=== PATIENT | male | born 1940 | race Caucasian/White ===

== ENCOUNTER 2019-11-05 13:10 | Emergency (ER) | payer SELFPAY ==
--- NOTE | ~2019-11-05 | CT_ITS ---
EXAMINATION: CT brain wo con INDICATION: Altered mental status COMPARISON: None TECHNIQUE: Standard unenhanced head CT. The dose-length product (DLP) was 681.00 mGy-cm. The mA was a djusted according to patient size. Iterative reconstruction technique was employed. FINDINGS: There is no acute intraparenchymal hemorrhage. No evidence of mass lesion. No evidence of a cute infarction. There is mild periventricular and subcortical hypodensity probably related to small vessel ischemic disease. There is mild prominence of the sulci and ventricles related to cerebral atr ophy. Intracranial calcified cerebral atherosclerosis is noted. There are no extra-axial collections. There is no mass effect or midline shift. The orbits and soft tissues are unremarkable. The visuali zed sinuses and mastoid air cells are well aerated. IMPRESSION: 1. No acute intracranial abnormality. 2. Age related findings. Reviewed, dictated and finalized at location A.
[2019-11-05 13:26] VITALS: BP 168/81; PULSE 84; RESP 14; TEMP 36.9; O2SAT 99
[2019-11-05 13:56] LABS: Basophils Percent Auto 0.5 % (0.2-1.2); Eosinophils Percent Auto 0.5 % (0-4.4); Hematocrit 41.6 % (42.0-52.0); Hemoglobin 13.9 g/dL (14.0-18.0); Immature Granulocyte Absolute 0.02 K/mm3 (0.00-0.031); Immature Granulocyte Percent A 0.3 % (0-0.5); Lymphocytes Absolute Auto 0.44 K/mm3 (0.9-3.2); Lymphocytes Percent Auto 7.3 % (18.3-44.2); Mean Corpuscular HGB Conc 33.4 g/dl (32-36); Mean Corpuscular Hemoglobin 31.5 pg (26-34); Mean Corpuscular Volume 94.3 fl (80-100); Monocytes Absolute Auto 0.4 K/mm3 (0.1-0.6); Monocytes Percent Auto 6.3 % (2.6-8.5); Neutrophils Absolute Auto 5.1 K/mm3 (1.3-6.7); Neutrophils Percent Auto 85.1 % (45.5-73.1); Platelet Count Result 137 k/mm3 (150-375); Red Blood Count 4.41 M/mm3 (4.6-6.20); Red Cell Distribution Width 12.5 % (11.5-14.5)
[2019-11-05 13:58] LABS: Add Urine Microscopic? NO; Appearance Urine Clear (Clear); Bilirubin Urine Negative (Negative); Blood Urine Negative (Negative); Color Urine Straw (Yellow); Glucose Urine UA Negative (Negative); Ketones Urine Negative (Negative); Leukocyte Esterase Ur Negative LEU/UL (Negative); Nitrate Urine Negative (Negative); Protein Urine Negative (Negative); Specific Grav Ur 1.011 (1.001-1.035); Urobilinogen Urine Negative mg/dL (<2.0)
--- NOTE | 2019-11-05 14:00 | ED.NAVMDI ---
HPI - Nausea/Vomiting/Diarrhea General Chief complaint: Nausea/Vomiting/Diarrhea Stated complaint: DIARRHEA Time Seen by Provider: 11/05/19 13:57 History of Present Illness HPI Narrative: 79 yo previously healthy male BIBEMS for diarrhea. He reports that he had an episode of diarrhea today and he is feeling awful. He believes that the diarrhea was caused by helicopters flying over his house. He has no other complaints. His sister is present and says that this is not his baseline. He is acting a little confused. She saw him yesterday and he was acting normal. Related Data Allergies Allergy/AdvReac Type Severity Reaction Status Date / Time GARLIC BREAD FROM Allergy Mild LOWER Uncoded 01/25/03 16:06 WONDERBREAD FOREARM RASH Review of Systems Review of Systems: All systems reviewed & are unremarkable except as noted in HPI and below Constitutional: Constitutional: Denies fever(s) and Denies weakness Eyes: Eyes: Denies change in vision ENT: Denies sore throat Cardiovascular: Cardiovascular: Denies chest pain Respiratory: Respiratory: Denies dyspnea Gastrointestinal: Gastrointestinal: Denies abdominal pain, Reports diarrhea, Denies nausea and Denies vomiting Genitourinary: Genitourinary: Denies hematuria and Denies dysuria Neurologic: Denies dizziness PMFSH Social History Social History (Updated 11/09/19 @ 17:00 by Francois Magaña MD) Smoking status: Never smoker Gender identity (if verbalized by the patient): Male Exam Const: General: healthy appearing, no acute distress, alert and confusion Nutritional Appearance: well nourished Orientation/consciousness: patient oriented x3 HENMT: Head: normal to inspection Eyes: Pupils: Equal, round and reactive pupils present Resp: Effort & Inspection: normal respiratory effort Auscultation: clear to auscultation bilaterally Cardio: Rate: regular rate Rhythm: regular rhythm GI: GI Palp: Yes Soft to palpation and No Tenderness to palpation present (GI) Neuro: General: patient oriented x3, moves all extremities, no focal motor deficits and No CN's II-XI intact bilaterally Speech: normal speech Gait exam (Neuro): Normal gait present Extrem: General: normal to inspection Course Vital Signs Vital signs: Vital Signs Temperature 36.9 C 11/05/19 13:26 Pulse Rate 84 11/05/19 13:26 Respiratory Rate 14 11/05/19 13:26 Blood Pressure 168/81 H 05/29/20 13:26 Pulse Oximetry 99 11/05/19 13:26 Temperature 36.9 C 11/05/19 13:26 Pulse Rate 65 11/05/19 17:30 Respiratory Rate 14 11/05/19 17:30 Blood Pressure 161/79 H 11/05/19 17:30 Pulse Oximetry 100 11/05/19 17:30 MDM - Nausea/Vomiting/Diarrhea MDM Narrative Medical decision making narrative: Labs, imaging, and EKG essentially normal. He remains somewhat confused about why he is here. I discussed this with he and his sister and recommended keep him in the hospital. He refused hospitaliztion. His sister was concerned, but said that if he did not want to staty she would support that desicion Lab Data Result diagrams: 11/05/19 13:49 11/05/19 14:47 Labs: Lab Results 11/05/19 11/05/19 11/05/19 Range/Units 13:48 13:49 14:47 WBC 6.0 (4.5-10.0) K/mm3 RBC 4.41 L (4.6-6.20) M/mm3 Hgb 13.9 L (14.0-18.0) g/dL Hct 41.6 L (42.0-52.0) % MCV 94.3 (80-100) fl MCH 31.5 (26-34) pg MCHC 33.4 (32-36) g/dl RDW 12.5 (11.5-14.5) % Plt Count 137 L (150-375) k/mm3 MPV 12.0 H (7.4-10.4) fl Immature Gran % (Auto) 0.3 (0-0.5) % Neut % (Auto) 85.1 H (45.5-73.1) % Lymph % (Auto) 7.3 L (18.3-44.2) % Republic % (Auto) 6.3 (2.6-8.5) % Eos % (Auto) 0.5 (0-4.4) % Baso % (Auto) 0.5 (0.2-1.2) % Lymph # (Auto) 0.44 L (0.9-3.2) K/mm3 Republic # (Auto) 0.4 (0.1-0.6) K/mm3 Eos # (Auto) 0.0 (0-0.3) K/mm3 Baso # (Auto) 0.0 (0.0-0.1) K/mm3 Abs Immat Gran (auto) 0.02 (0.00-0.031
[2019-11-05] MEDS: SODIUM CHLORIDE 0.9% IV 1,000 ML 999 ML IV CONT (14:41)
[2019-11-05 15:27] LABS: Alanine Aminotransferase 15 U/L (4-50); Albumin Level 3.9 g/dL (3.5-5.1); Alkaline Phosphatase 63 U/L (38-126); Aspartate Amino Transferase 17 U/L (17-59); Bilirubin,Total 0.5 mg/dL (0.2-1.3); Blood Urea Nitrogen 12 mg/dL (9-20); Calcium 8.9 mg/dL (8.4-10.2); Carbon Dioxide 29 mmol/L (22-30); Chloride 106 mmol/L (98-107); Estimated CRCL calculation 87 ml/min; Estimated Glomerular Filt Rate > 60; Glucose 92 mg/dL (75-110); Lipase 50 U/L (23-300); Potassium 3.8 mmol/L (3.4-5.0); Sodium 139 mmol/L (137-145)
[2019-11-05 15:50] VITALS: BP 166/84; PULSE 69; RESP 14; O2SAT 99
[2019-11-05 17:30] VITALS: BP 161/79; PULSE 65; RESP 14; O2SAT 100
== END 2019-11-05 17:37 | disposition home or self-care (01) ==
PROVIDERS: Emergency Provider Emergency Medicine
DX: R41.0 Disorientation, unspecified (principal)
CPT/HCPCS: 36415; 70450; 80053; 81003; 83690; 85025; 96360; 99284; J7030

== ENCOUNTER 2019-12-12 09:15 | Inpatient (IN) | payer MEDICARE, SELFPAY ==
[2019-12-12] VITALS (11 sets, daily range): BP systolic 134–170; BP diastolic 69–86; PULSE 62–72; RESP 12–19; TEMP 36.5–36.9; O2SAT 97–100; BMI 20.7
--- NOTE | ~2019-12-12 | XR_ITS ---
EXAMINATION: XR wrist LT min 3V DATE: 12/13/2019 15:16 INDICATION: Left wrist pain TECHNIQUE: Posteroanterior, ulnar deviation, oblique, and lateral views of the left wrist were obtain ed. COMPARISON: none FINDINGS: Alignment is normal. No fracture. 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 Soft tissues are unremarkable. Peripheral IV at the radial aspect of the distal l eft forearm. IMPRESSION: 1. 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 Reviewed, dictated and finalized at location A. IMPRESSION: 1. 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
--- NOTE | ~2019-12-12 | CT_ITS ---
EXAMINATION: CT brain wo con DATE: 12/12/2019 09:44 INDICATION: Altered mental status, weakness and fall TECHNIQUE: Computed tomography (CT) of the head was performed without intravenous contrast. Sagittal and coronal reconstructions were performed. The mA was adjusted according to patient size. Iterative reconstruction technique was employed. The dose-length product was 681.00 mGy-cm. COMPARISON: head CT dated 11/05/2019 FINDINGS: No fracture. No acute intracranial hemorrhage, acute infarction or abnormal extra axial fluid collect ion. Symmetric prominence of the dose and to lesser degree the sulci which could be related to modera te age-related diffuse volume loss although differential would include normal pressure hydrocephalus. There is mild scattered white matter hypoattenuation consistent with chronic small vessel ischemic d isease. No mass/mass effect. The orbits, paranasal sinuses and mastoid air cells are normal. Intracr anial calcified cerebral atherosclerosis is noted. IMPRESSION: 1. No fracture or acute intracranial hemorrhage. 2. Symmetric enlargement of the ventricles which is disproportionate to the mild increased prominence of the sulci which could be related to central predominant atrophy or normal pressure hydrocephalus (NPH: clinical triad ataxia/gait disturbance, dementia, urinary incontinence). 3. Mild scattered periventricular predominant white matter hypoattenuation consistent with chronic sm all vessel ischemic disease. Reviewed, dictated and finalized at location A. IMPRESSION: 1. No fracture or acute intracranial hemorrhage. 2. Symmetric enlargement of the ventricles which is disproportionate to the mil d increased prominence of the sulci which could be related to central predomina nt atrophy or normal pressure hydrocephalus (NPH: clinical triad ataxia/gait disturbance, dementia, urinary incontinence). 3. Mild scattered periventricular predominant white matter hypoattenuation cons istent with chronic small vessel ischemic disease.
--- NOTE | ~2019-12-12 | MR_ITS ---
EXAMINATION: MR brain/brain stem wo/w con DATE: 12/13/2019 09:24 INDICATION: Confusion. Generalized weakness. Fall. TECHNIQUE: Magnetic resonance imaging (MRI) of the brain and brainstem was performed without and with 10 mL MultiHance intravenous contrast. Sequences included sagittal and axial T1-weighted FSE, axial diffusion-weighted FS EPI, axial T2*-weighted GRE, axial T2-weighted FLAIR Propeller, and axial T2-we ighted Propeller. Postcontrast sequences included axial and coronal T1-weighted FSE. Apparent diffusi on coefficient (ADC) maps were created. COMPARISON: Head CT 12/12/2019 FINDINGS: There are scattered areas of nonspecific increased T2-weighted signal intensity in the cere bral white matter. There is no intracranial hemorrhage, acute infarction, or abnormal intracranial ma ss lesion. The ventricles are normal in size. The orbits are normal. The mastoid air cells are normal . There is mild mucosal thickening in the paranasal sinuses. IMPRESSION: 1. Stable moderate nonspecific cerebral white matter disease, which likely represents chronic small v essel ischemic disease. Reviewed, dictated and finalized at location A. IMPRESSION: 1. Stable moderate nonspecific cerebral white matter disease, which likely repr esents chronic small vessel ischemic disease.
--- NOTE | ~2019-12-12 | XR_ITS ---
EXAMINATION: XR chest 1V portable DATE: 12/12/2019 09:56 INDICATION: Weakness TECHNIQUE: frontal view of the chest was obtained. COMPARISON: None FINDINGS: Minimal bibasilar atelectasis. No pulmonary edema, pleural effusion or pneumothorax. The cardiomedias tinal silhouette is normal. Mild thoracolumbar dextrocurvature. IMPRESSION: 1. Minimal bibasilar atelectasis. Reviewed, dictated and finalized at location A.
--- NOTE | ~2019-12-12 | XR_ITS ---
EXAMINATION: XR shoulder LT min 2V, XR humerus LT, XR elbow LT min 3V DATE: 12/13/2019 15:16 INDICATION: Pain at the left elbow and shoulder TECHNIQUE: 1. AP internally and externally rotated, AP oblique externally rotated and transscapular Y views of t he left shoulder were obtained. 2. Frontal and lateral views of the left humerus were obtained. 3. AP, lateral and 2 oblique views of the left elbow were obtained. COMPARISON: None FINDINGS: Normal alignment at the right shoulder and elbow. There is abnormal contour along the anteromedial as pect of the left humeral head suggesting an age-indeterminate reverse Hill-Sachs fracture trough. No other lesions suspicious for fracture identified. Mild nonuniform joint space are at the left acromio clavicular joint and small marginal osteophyte about the glenoid consistent with mild osteoarthritis. Additional mild osteoarthritis at the left acromioclavicular joint. Joint spaces at the left elbow a re normal with no joint effusion. Soft tissues are unremarkable. Visualized portions of the left lung are clear. IMPRESSION: Abnormal contour along the anteromedial aspect of the left humeral head with location and appearance suggesting possible reverse Hill-Sachs fracture trough related to an age-indeterminate posterior disl ocation injury. Correlate with clinical history. Reviewed, dictated and finalized at location A. IMPRESSION: Abnormal contour along the anteromedial aspect of the left humeral head with lo cation and appearance suggesting possible reverse Hill-Sachs fracture trough re lated to an age-indeterminate posterior dislocation injury. Correlate with clin ical history. IMPRESSION: Abnormal contour along the anteromedial aspect of the left humeral head with lo cation and appearance suggesting possible reverse Hill-Sachs fracture trough re lated to an age-indeterminate posterior dislocation injury. Correlate with clin ical history.
--- NOTE | ~2019-12-12 | US_ITS ---
EXAMINATION: US carotid duplex BI DATE: 12/13/2019 13:49 INDICATION: Weakness. Cerebral atherosclerosis. Fall with possible syncopal episode. TECHNIQUE: Grayscale, color Doppler, and pulsed Doppler images of the cervical carotid arteries were obtained. The degree of vessel stenosis is placed in one of the following categories: normal, <50%, 5 0-69%, >=70% but less than near-occlusion, near-occlusion, or total occlusion. Note that percent sten osis relative to normal distal artery lumen diameter is indirectly measured from velocity measurement s as described by Francois, et al. Radiology 2003; [id number]. COMPARISON: None. FINDINGS: RIGHT: The right common carotid artery (CCA) peak systolic velocity (PSV) is 82 cm/s. The right internal car otid artery (ICA) PSV is 92 cm/s. The right ICA end-diastolic velocity (EDV) is 18 cm/s. The right IC A/CCA PSV ratio is 1.1. Grayscale and color Doppler images yield an estimate of <50% diameter reducti on from plaque in the ICA. The external carotid artery (ECA) PSV is 82 cm/s. There is antegrade flow in the right vertebral artery. LEFT: The left CCA PSV is 76 cm/s. The left ICA PSV is 71 cm/s. The left ICA EDV is 15 cm/s. The left ICA/C CA PSV ratio is 0.9. Grayscale and color Doppler images yield an estimate of <50% diameter reduction from plaque in the ICA. The ECA PSV is 53 cm/s. There is antegrade flow in the left vertebral artery. IMPRESSION: 1. <50% stenosis in the right internal carotid artery. 2. <50% stenosis in the left internal carotid artery. Reviewed, dictated and finalized at location A.
--- NOTE | 2019-12-12 09:17 | ECG_ITS ---
Measurements Intervals [place] Rate: 72 P: 38 UT: 177 QRS: 1 QRSD: 107 T: 28 QT: 389 QTc: 428 Interpretive Statements SINUS RHYTHM INCOMPLETE RIGHT BUNDLE BRANCH BLOCK DELAYED PRECORDIAL R/S TRANSITION BORDERLINE ST-T WAVE ABNORMALITY- INF/LAT LEADS BASELINE ARTIFACT- II, III, AVF BORDERLINE ECG Electronically Signed On 12-12-2019 12:56:17 CDT by Chu Stock D.O.
--- NOTE | 2019-12-12 09:18 | ED.AMS ---
HPI - Altered Mental Status General Chief Complaint: Weakness Stated Complaint: weakness History of Present Illness HPI narrative: BIBEMS from assisted living for a fall and confusion. He was reportedly found on the floor of his room with his clothes soaked in urine. He is not able to provide any information about the fall. He denies any complaints. Related Data Allergies Allergy/AdvReac Type Severity Reaction Status Date / Time GARLIC BREAD FROM Allergy Mild LOWER Uncoded 01/25/03 16:06 WONDERBREAD FOREARM RASH Review of Systems Review of Systems: All systems reviewed & are unremarkable except as noted in HPI and below Constitutional: Constitutional: Denies fever(s) and Denies weakness ENT: Denies sore throat Cardiovascular: Cardiovascular: Denies chest pain Respiratory: Respiratory: Denies dyspnea Gastrointestinal: Gastrointestinal: Denies abdominal pain and Denies nausea Neurologic: Denies dizziness and Denies weakness [facility] Surgical History Surgical History No history of previous surgery Family History Family History Mother due to natural causes The patient tells me that his mother at the age of 82 of natural causes. Father due to natural causes The patient tells me that his father at the age of 88 due to natural causes. Sibling Family history unknown The patient tells me that his sister has health issues but he does not want to disclose her information. Social History Social History Social History: The patient tells me that he lives at [facility] by himself. He has never been or had any children. He is retired from [employer]. He is a lifelong nonsmoker and nondrinker. The patient tells me that his sister Camryn is his durable power real estate attorney for healthcare in the event that he cannot make decisions for himself. However at this time he desires to be a DNR. He has not used any marijuana or illicit drugs. Smoking status: Never smoker Second hand tobacco smoke exposure: No Gender identity (if verbalized by the patient): Male Spiritual care concerns: No Exam Const: General: no acute distress, alert and confusion Orientation/consciousness: patient oriented x3 HENMT: Other: abrasion to right forehead Eyes: Pupils: Equal, round and reactive pupils present Neck: Neck: normal visual inspection and no lymphadenopathy Chest: Chest palpation & inspection: no tenderness Resp: Effort & Inspection: normal respiratory effort Auscultation: clear to auscultation bilaterally, no rales, no rhonchi and no wheezes Cardio: Jugular venous distension: no JVD Rate: regular rate Rhythm: regular rhythm Heart sounds: no murmurs GI: Inspection: non-distended GI Palp: Yes Soft to palpation and No Tenderness to palpation present (GI) Skin: Other: fingers cool and pale. Neuro: General: patient oriented x3, moves all extremities, no focal motor deficits and CN's II-XI intact bilaterally Speech: normal speech Extrem: General: no edema Psych: Appearance: well kempt Affect: normal affect Course Vital Signs Vital signs: Vital Signs Temperature 36.9 C 12/12/19 09:20 Pulse Rate 66 12/12/19 09:20 Respiratory Rate 12 12/12/19 09:20 Blood Pressure 170/85 H 12/12/19 09:20 Pulse Oximetry 100 12/12/19 09:20 Temperature 36.9 C 12/12/19 09:20 Pulse Rate 63 12/12/19 15:46 Respiratory Rate 17 12/12/19 15:46 Blood Pressure 155/69 H 12/12/19 15:46 Pulse Oximetry 98 12/12/19 15:46 MDM - Altered Mental Status Medical Records Attestation: I reviewed the patient's medical records. Lab Data Attestation: I reviewed the patient's lab results. Result diagrams: 12/12/19 10:26 12/12/19 10:26 Labs:
[2019-12-12] MEDS: SODIUM CHLORIDE 0.9% IV 1,000 ML 999 ML IV CONT (10:03)
[2019-12-12 10:36] LABS: Basophils Percent Auto 0.1 % (0.2-1.2); Eosinophils Percent Auto 0.1 % (0-4.4); Hematocrit 42.2 % (42.0-52.0); Hemoglobin 14.1 g/dL (14.0-18.0); Immature Granulocyte Absolute 0.02 K/mm3 (0.00-0.031); Immature Granulocyte Percent A 0.2 % (0-0.5); Immature Platelet Fraction Pct 5.2 % (0.9-11.2); Lymphocytes Absolute Auto 0.35 K/mm3 (0.9-3.2); Lymphocytes Percent Auto 4.1 % (18.3-44.2); Mean Corpuscular HGB Conc 33.4 g/dl (32-36); Mean Corpuscular Hemoglobin 31.5 pg (26-34); Mean Corpuscular Volume 94.2 fl (80-100); Mean Platelet Volume 11.8 fl (7.4-10.4); Monocytes Absolute Auto 0.7 K/mm3 (0.1-0.6); Neutrophils Absolute Auto 7.4 K/mm3 (1.3-6.7); Neutrophils Percent Auto 87.5 % (45.5-73.1); Platelet Count Result 142 k/mm3 (150-375); Red Blood Count 4.48 M/mm3 (4.6-6.20); Red Cell Distribution Width 12.7 % (11.5-14.5); White Blood Count 8.5 K/mm3 (4.5-10.0)
[2019-12-12 10:44] LABS: INR 1.2; Prothrombin Time 14.7 Seconds (11.1-14.7)
[2019-12-12 10:45] LABS: Partial Thromboplastin Time 30.1 SECONDS (22.3-36.8)
[2019-12-12 10:46] LABS: Alanine Aminotransferase 21 U/L (4-50); Albumin Level 4.4 g/dL (3.5-5.1); Alkaline Phosphatase 67 U/L (38-126); Aspartate Amino Transferase 35 U/L (17-59); Bilirubin,Total 1.3 mg/dL (0.2-1.3); Blood Urea Nitrogen 15 mg/dL (9-20); Calcium 9.1 mg/dL (8.4-10.2); Carbon Dioxide 28 mmol/L (22-30); Chloride 103 mmol/L (98-107); Estimated Glomerular Filt Rate > 60; Glucose 115 mg/dL (75-110); Potassium 3.7 mmol/L (3.4-5.0); Sodium 138 mmol/L (137-145)
[2019-12-12 11:21] LABS: Add Urine Microscopic? YES; Appearance Urine Clear (Clear); Bacteria Urine Trace /hpf; Bilirubin Urine Negative (Negative); Blood Urine 1+ (Negative); Color Urine Yellow (Yellow); Glucose Urine UA Negative (Negative); Ketones Urine 1+ mg/dL (Negative); Leukocyte Esterase Ur Negative LEU/UL (Negative); Mucus Urine Few /lpf; Nitrate Urine Negative (Negative); Protein Urine Negative (Negative); RBC Urine 0-2 /hpf (0-2); Specific Grav Ur 1.025 (1.001-1.035); Squamous Epithelial Cell Urine Rare /hpf (Few); Urobilinogen Urine Negative mg/dL (<2.0); WBC Urine 0-3 /hpf
--- NOTE | 2019-12-12 16:18 | PM.IMHP ---
H&P: HPI History of Present Illness Chief complaint: generalized weakness Narrative: Sheldon Marshall is a 79 year old male who tells me that he lives at [facility]. He tells me that he has not been eating very well because he does not like the food there. The patient stated that he did get weak today and he thinks that he got weak because he did not eat today. I explained that he had fallen over and hit his head had an abrasion on his head and that he had been incontinent of urine. The patient stated well things happened people. He says he feels great and does not have problems walking. Was read as sinus rhythm with incomplete right bundle-branch block delayed precordial RS transition borderline ST T-wave abnormality baseline artifact 2 3 and AVF borderline EKG. Head CT was read as no fracture or acute intracranial hemorrhage. Symmetric enlargement of the ventricles which is disproportionate to the mild increased prominence of the sulci which could be related to central predominant atrophy or normal pressure hydrocephalus clinical triad. Mild scattered periventricular predominant white matter hypoattenuation consistent with chronic small-vessel ischemic disease. When I spoke to the patient he was alert and orientated x3 and was moving all extremities. It was noted that he does have an abrasion to his right forehead. 1+ ketones in his urine. The patient is being admitted overnight for generalized weakness fall and urinary incontinence. Urinalysis was negative. Date of service 12/12/2019 Review of Systems Review of Systems: All systems reviewed & are unremarkable except as noted in HPI and below Constitutional: Constitutional: Reports as per HPI and Reports no additional constitutional complaints Eyes: Eyes: Reports as per HPI and Reports no additional eye complaints ENT: Reports system reviewed and no additional complaints, except as documented and Reports Normal hearing present Cardiovascular: Cardiovascular: Reports no additional cardiovascular complaints Respiratory: Respiratory: Reports no additional respiratory complaints and Reports no additional respiratory complaints Gastrointestinal: Gastrointestinal: Reports as per HPI and Reports no additional gastrointestinal complaints Musculoskeletal: Musculoskeletal: Reports no additional musculoskeletal complaints Integumentary/Breasts: Skin/Breast: Reports system reviewed and no additional complaints, except as docu and Reports as per HPI Neurologic: Reports system reviewed and no additional complaints, except as documented, Reports as per HPI and Reports Normal hearing present Psychiatric: Psychiatric: Reports no additional psychiatric complaints and Reports as per HPI Endocrine: Endocrine: Reports no additional endocrine complaints Hematologic/Lymphatic: Hematologic/Lymphatic: Reports no additional hematologic/lymphatic complaints Allergic/Immunologic: Allergic/Immunologic: Reports no additional allergic/immunologic complaints [facility] Surgical History Surgical History (Updated 12/12/19 @ 16:33 by Veronica Chi NP) No history of previous surgery Family History Family History (Updated 12/12/19 @ 16:36 by Veronica Chi NP) Mother due to natural causes The patient tells me that his mother at the age of 82 of natural causes. Father due to natural causes The patient tells me that his father at the age of 88 due to natural causes. Sibling Family history unknown The patient tells me that his sister has health issues but he does not want to disclose her information. Social History Social History (Updated 12/12/19 @ 16:38 by Veronica Chi NP) Social History: The patient tells me that he lives at [facility] by himself. He has never been or had any children. He is retired from [employer]. He is a lifelong nonsmoker and nondrinker. The patient tells me that his sister Camryn is h
--- NOTE | 2019-12-12 17:07 | ADMGEN ---
This patient, Sheldon Marshall, was admitted to [facility] Room 324-01. Patient/family oriented to hospital policies and general routines including ID bracelet, bed and alarms, visiting hours, pain management, procedures, bathroom and other care routines, personal items, smoking policy, room service/diet, and visiting hours. Valuables list has been completed. Information on how to activate the Rapid Response Team has been discussed. Patient/Family are encouraged to report perceived risks to care and to ask questions if they do not understand what they are told or what they should do.
[2019-12-12] MEDS: LACTATED RINGERS 1,000 ML 100 ML IV CONT (18:55)
[2019-12-13] VITALS (10 sets, daily range): BP systolic 144–170; BP diastolic 72–90; PULSE 55–80; RESP 16–18; TEMP 36.5–36.7; O2SAT 98–100; BMI 20.7
--- NOTE | 2019-12-13 | ECHO_ITS ---
Patient Info Name: Sheldon Marshall Age: 79 years : 1940 Gender: Male Ht: 69 in Wt: 140 lbs BSA: 1.75 m2 HR: 67 bpm BP: 144 / 84 mmHg Heart Rhythm: Sinus Rhythm Technical Quality: Good Exam Date: 12/13/2019 3:55 PM Exam Location: [facility] Pulmonary Exam Room: 324 Patient Status: Inpatient Admit Date: 12/13/2019 Staff Ordering Physician: Alicia Boudreaux PA-C Business Initiatives Manager: Lashay Taylor RDCS Attending Provider: Alicia Boudreaux PA-C Referring Physician: Janusz GONZALEZ; Exam Type: CA echo doppler color flow Study Info Indications - syncope /fall Complete two-dimensional, color flow and Doppler transthoracic echocardiogram is performed. Summary 1. Left ventricular systolic function is normal, estimated at >70%. 2. There is no increased left ventricular wall thickness. 3. The left ventricular diastolic function is grade II diastolic dysfunction. 4. Left atrial chamber dimension is moderately enlarged. 5. Right atrial chamber dimension is moderately enlarged. 6. There is no aortic valve stenosis. 7. There is mild tricuspid valve regurgitation. 8. No pulmonary hypertension, estimated pulmonary arterial systolic pressure is 41 mmHg. Left Ventricle Left ventricular chamber dimension is normal. Left ventricular systolic function is normal, estimated at >70%. There is no increased left ventricular wall thickness. The left ventricular diastolic function is grade II diastolic dysfunction. Right Ventricle Right ventricular chamber dimension is normal. Right ventricular systolic function is normal. Left Atria Left atrial chamber dimension is moderately enlarged. Right Atria Right atrial chamber dimension is moderately enlarged. Aortic Valve The aortic valve is not well visualized. There is mild aortic valve sclerosis. There is no aortic valve stenosis. There is no aortic valve regurgitation. Pulmonic Valve The pulmonic valve is not well visualized. There is trace pulmonic regurgitation. Mitral Valve The mitral valve has normal leaflets. There is trace mitral valve regurgitation. The mitral valve annulus is mildly calcified. Tricuspid Valve The tricuspid valve leaflets are normal. There is mild tricuspid valve regurgitation. No pulmonary hypertension, estimated pulmonary arterial systolic pressure is 41 mmHg. Pericardium/Pleural The pericardium appears normal. There is no pericardial effusion. Inferior Vena Cava Dilated inferior vena cava with no collapse upon inspiration consistent with Empty right atrial pressure, 15 mmHg. Aorta The aortic root size at the sinus of Valsalva is normal. There is mild aortic atherosclerosis. Left Ventricular Outflow Tract Name Value Normal LVOT 2D LVOT Diameter 2.1 cm LVOT Doppler LVOT Peak Gradient 4 mmHg LVOT Mean Gradient 2 mmHg LVOT VTI 20 cm LVOT VTI/AV VTI Ratio 0.7 LVOT Stroke Volume 71 ml LVOT CO 15.1 l/min LV
[2019-12-13 06:23] LABS: Basophils Percent Auto 0.5 % (0.2-1.2); Eosinophils Absolute Auto 0.1 K/mm3 (0-0.3); Eosinophils Percent Auto 1.5 % (0-4.4); Hematocrit 38.7 % (42.0-52.0); Hemoglobin 12.9 g/dL (14.0-18.0); Immature Granulocyte Absolute 0.01 K/mm3 (0.00-0.031); Immature Granulocyte Percent A 0.2 % (0-0.5); Immature Platelet Fraction Pct 4.2 % (0.9-11.2); Lymphocytes Percent Auto 9.1 % (18.3-44.2); Mean Corpuscular HGB Conc 33.3 g/dl (32-36); Mean Corpuscular Hemoglobin 31.2 pg (26-34); Mean Corpuscular Volume 93.7 fl (80-100); Mean Platelet Volume 11.6 fl (7.4-10.4); Monocytes Absolute Auto 0.5 K/mm3 (0.1-0.6); Monocytes Percent Auto 9.7 % (2.6-8.5); Neutrophils Absolute Auto 4.3 K/mm3 (1.3-6.7); Platelet Count Result 124 k/mm3 (150-375); Red Blood Count 4.13 M/mm3 (4.6-6.20); Red Cell Distribution Width 12.9 % (11.5-14.5); White Blood Count 5.5 K/mm3 (4.5-10.0)
[2019-12-13 06:34] LABS: Lactic Acid 0.7 mmol/L (0.7-2.1)
[2019-12-13 06:37] LABS: Alanine Aminotransferase 18 U/L (4-50); Albumin Level 3.4 g/dL (3.5-5.1); Alkaline Phosphatase 55 U/L (38-126); Aspartate Amino Transferase 26 U/L (17-59); Bilirubin,Total 0.7 mg/dL (0.2-1.3); Blood Urea Nitrogen 17 mg/dL (9-20); Calcium 8.3 mg/dL (8.4-10.2); Carbon Dioxide 26 mmol/L (22-30); Chloride 106 mmol/L (98-107); Estimated CRCL calculation 93 ml/min; Estimated Glomerular Filt Rate > 60; Glucose 94 mg/dL (75-110); Magnesium 1.9 mg/dL (1.6-2.3); Potassium 3.5 mmol/L (3.4-5.0); Sodium 138 mmol/L (137-145)
--- NOTE | 2019-12-13 08:38 | PCOTNOTE ---
Patient down for MRI at this time. Will complete OT evaluation at later time.
--- NOTE | 2019-12-13 13:02 | PM.IMPN ---
Progress Note: A&P Assessment and Plan (1) Weakness: Code(s): R53.1 - Weakness Status: Acute Assessment and Plan: Patient states his weakness is secondary to not eating and then states he fell to the ground because of that. No signs of acute infection at this time as the cause. Will order PT/OT to evaluate and see if the patient needs further PT/OT upon discharge. CT Head showed concerns of the patient possibly having central predominant atrophy or normal pressure hydrocephalus. MRI was ordered showing normal MRI other than chronic small vessle disease. Patient had ataxia, confusion and urinary incontinence. At this point patient is alert and orientated x3. I called our Neurologist Dr. Solis who recommended ordering: CPK, Adolase, CRP along with Carotid Dopplers and an Echocardiogram for further evaluation. Neurologist input is greatly appreciated. Will continue monitoring the patients symptoms. (2) Fall: Code(s): W19.XXXA - Unspecified fall, initial encounter Status: Acute Assessment and Plan: Patient stated that he felt weak today because he had eaten. He has had a poor appetite due to his dislike of the food selection at this retirement. Will start supplements and dietary consult. Will order PT/OT. We will see how the patient does with therapy and will determine his discharge planning (3) Abrasion of forehead: Code(s): S00.81XA - Abrasion of other part of head, initial encounter Status: Acute Assessment and Plan: Due to fall. No complications. (4) Ataxia: Code(s): R27.0 - Ataxia, unspecified Status: Acute Assessment and Plan: PT OT evaluation. (5) Urinary incontinence: Qualifiers: Urinary Incontinence type: unspecified incontinence Qualified Code(s): R32 - Unspecified urinary incontinence Code(s): R32 - Unspecified urinary incontinence Status: Acute Assessment and Plan: I believe that this occurred just because of the fall. He has no other problems with urinary incontinence. (6) Thrombocytopenia: Code(s): D69.6 - Thrombocytopenia, unspecified Status: Acute Assessment and Plan: The patient denies history of thrombocytopenia in the past. He reports not seeing a doctor for years. Will check a peripheral smear, INR/PT/PTT, fibrinogen, otherwise his liver enzyme are normal. Will continue monitoring during hospitalization. Time Spent With Patient Time with patient: 25 - 35 minutes Subjective Date/time seen: 12/13/19 13:02 Interval history: Date of service 12/13/2019: Patient states he is feeling well today. He states the reason why he had weakness yesterday is because there is a bad cook at his snf center and he refuses to eat her food. He cannot explain to me what happened whenever he fell. He cannot tell if he lost consciousness or not. He has an abrasion to his forehead but states this was not from his fall from the other day he is unsure how he got the abrasion. He reports not being able to move his left arm, but states he believes this is from an injury when he was a child and it has slowly become weaker overtime. He cannot move his left elbow and shoulder secondary to pain. He denies any chest pain, shortness of breath, cough, fever, chills, nausea, vomiting, trouble swallowing, weight loss, abdominal pain, leg swelling, calf pain, focal weakness, headache, vision changes, neck pain or any other symptoms at this time. Review of Systems Review of Systems: All systems reviewed & are unremarkable except as noted in HPI and below Exam Narrative: Exam Narrative: General: 79-year-
[2019-12-13 14:41] LABS: CRP 6.3 mg/dL (<1.0); Creatine Kinase 170 U/L (55-170)
--- NOTE | 2019-12-13 19:08 | CONS_ITS ---
DATE OF CONSULTATION: HISTORY OF PRESENT ILLNESS: A 79-year-old right-handed male has been admitted to the hospital for complaints of generalized weakness. The patient lives at the [facility], has not been eating well. He has been falling, hitting his head and sustained this abrasion most recently. Evaluation in the emergency room included the EKG with sinus rhythm with right bundle-branch block. Transitional ST wave abnormality. CT scan of the head was negative for any space-occupying lesion or the bleed, except he was noted to have symmetrical enlargement of ventricles, raising the possibility of the normal-pressure hydrocephalus. 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 PHYSICAL EXAMINATION: VITAL SIGNS: Normal vital signs. GENERAL: Examination revealed him to be awake, alert, cooperative, in no obvious acute distress. HEENT: Head normocephalic with no cranial bruit. Ear, nose, and throat examination normal. NECK: Supple with no cervical bruit. No thyromegaly. No lymphadenopathy. HEART: Regular with no murmur. LUNGS: Clear to auscultation with no crepitations or rhonchi. ABDOMEN: Soft with no organomegaly. NEUROLOGICAL: He is awake, alert, oriented. Speech not dysphasic, not dysarthric. Pupils round, regular. Lainez of vision full. Extraocular movements full. Face symmetrical. Tongue midline. Motor examination revealed him to have no drift. Tone normal. Reflexes symmetrical. Plantars downgoing. Evaluation up until now included as mentioned before the brain MRI, nonspecific cerebral white matter disease secondary to chronic small-vessel disease, but when he came in the emergency room, his CT scan was read as the symmetrical enlargement of ventricles, disproportionate to the mild increased prominence of sulci, raising the possible central predominant atrophy versus normal pressure hydrocephalus. Otherwise, he had multiple x-rays such as the osteoarthritis of the carpometacarpal joints on the wrist x-rays. Abnormal left humeral head on x-ray of the shoulder. Negative elbow x-rays. Negative doppler study of the carotid and echocardiogram pending. Considering his MRI of the head is not very specific. No further intervention is necessary at this stage as far as the cerebral atrophy versus the normal-pressure hydrocephalus his concern. I will re-examine the patient discussed with him further and recommendation made accordingly. AMIRA BULL M.D. GROUNDWATER MONITORING TECHNICIAN GROUNDWATER MONITORING TECHNICIAN D I MT: Avi
[2019-12-14] VITALS (7 sets, daily range): BP systolic 140–145; BP diastolic 72–73; PULSE 56–87; RESP 18; TEMP 36.4; O2SAT 99–100
[2019-12-14 06:50] LABS: Basophils Percent Auto 0.4 % (0.2-1.2); Eosinophils Absolute Auto 0.1 K/mm3 (0-0.3); Eosinophils Percent Auto 2.1 % (0-4.4); Hemoglobin 13.6 g/dL (14.0-18.0); Immature Granulocyte Absolute 0.01 K/mm3 (0.00-0.031); Immature Granulocyte Percent A 0.2 % (0-0.5); Immature Platelet Fraction Pct 5.6 % (0.9-11.2); Lymphocytes Absolute Auto 0.56 K/mm3 (0.9-3.2); Mean Corpuscular Hemoglobin 31.6 pg (26-34); Mean Corpuscular Volume 92.8 fl (80-100); Mean Platelet Volume 11.6 fl (7.4-10.4); Monocytes Absolute Auto 0.4 K/mm3 (0.1-0.6); Monocytes Percent Auto 8.2 % (2.6-8.5); Neutrophils Absolute Auto 3.6 K/mm3 (1.3-6.7); Neutrophils Percent Auto 77.1 % (45.5-73.1); Platelet Count Result 131 k/mm3 (150-375); Red Blood Count 4.31 M/mm3 (4.6-6.20); Red Cell Distribution Width 12.7 % (11.5-14.5); White Blood Count 4.7 K/mm3 (4.5-10.0)
[2019-12-14 06:57] LABS: Blood Urea Nitrogen 13 mg/dL (9-20); Calcium 8.5 mg/dL (8.4-10.2); Carbon Dioxide 29 mmol/L (22-30); Chloride 103 mmol/L (98-107); Estimated CRCL calculation 93 ml/min; Estimated Glomerular Filt Rate > 60; Glucose 104 mg/dL (75-110); Magnesium 1.8 mg/dL (1.6-2.3); Potassium 3.2 mmol/L (3.4-5.0); Sodium 137 mmol/L (137-145)
[2019-12-14 07:00] LABS: INR 1.2; Prothrombin Time 14.4 Seconds (11.1-14.7)
[2019-12-14 07:01] LABS: Partial Thromboplastin Time 31.2 SECONDS (22.3-36.8)
[2019-12-14 07:24] LABS: Fibrinogen 245 mg/dl (215-510)
[2019-12-14 08:03] LABS: Folic Acid 8.7 ng/mL (2.76->20)
[2019-12-14] MEDS: POTASSIUM CHLORIDE 20 MEQ TABLET 40 MEQ PO (09:02)
--- NOTE | 2019-12-14 09:16 | PM.CNOR ---
Assessment and Plan Assessment and plan (1) Injury of left shoulder: Qualifiers: Encounter type: initial encounter Qualified Code(s): S49.92XA - Unspecified injury of left shoulder and upper arm, initial encounter Code(s): S49.92XA - Unspecified injury of left shoulder and upper arm, initial encounter Status: Acute Assessment and Plan: 79-year-old male with left upper extremity pain status post fall at his [facility] facility. The fall was unwitnessed but he was found on the floor covered in urine per emergency room records. The patient is a poor historian in regards to the left shoulder pain and is unaware of whether or not his shoulder pain began at the time of his fall. He denies elbow pain, wrist pain, hand pain today on exam. He has full range of motion of the elbow, wrist and hand. The patient is unable to abduct the left upper extremity without pain. Orthopedic consult requested by the medicine team. Radiographs of the left shoulder reveal abnormal contour along the anteromedial aspect of the left humeral head with location and appearance suggesting possible reverse Hill-Sachs fracture trough related to an age-indeterminate posterior dislocation injury. Suspect dislocation relocation injury which possibly began at the time of the fall. Radiographs reveal no evidence of dislocation or rotator cuff arthropathy at this time. NV intact. Discussed injury condition, nature, etiology and course of natural history. Conservative and operative treatment options reviewed. Recommend conservative treatment at this time with rest, immobilization of the left upper arm and pain control. Recommended ice the left upper extremity. Patient to be fit with the shoulder immobilizer, nursing notified. The patient will follow-up with Dr. Pal in 3 weeks at which point he will have repeat radiographs and reassessment. Pending exam at that time we may progress range of motion and formal PT. Thank you for allowing us to assist in the care of this patient. (2) Shoulder dislocation: Qualifiers: Encounter type: initial encounter Laterality: left Qualified Code(s): S43.005A - Unspecified dislocation of left shoulder joint, initial encounter Code(s): S43.006A - Unspecified dislocation of unspecified shoulder joint, initial encounter Status: Acute Assessment and Plan: Radiographs reveal evidence of possible dislocation relocation injury. No evidence of dislocation at this time or rotator cuff arthropathy via radiographs. Patient has pain with abduction of the shoulder. He has full range of motion of the elbow and the wrist and hand without pain. History, exam and radiographs reviewed with the patient and with Dr. Pal. plan for conservative treatment at this time with a shoulder immobilizer. Will follow up with the patient in 3 weeks for repeat radiographs and reassessment. May progress activity at that time or further discuss surgical intervention if needed. History of Present Illness HPI Consult date: 12/14/19 Requesting physician: Alicia Boudreaux PA-C Consult reason: fracture ( Left upper extremity) Chief complaint: generalized weakness Narrative: Orthopedic consult for this 79-year-old male with left upper extremity pain. The patient was admitted from his assisted-living facility after a fall due to weakness. His followed not witnessed but he was found on the floor covered in urine per the emergency room reports. The nature of the fall is unknown. The patient does not know if he hurt his arm at the time of the fall. He is unable to provide details regarding the fall as well. The patient does endorse left upper arm pain which he states has been present for as long as I can remember . he is not sure if he hurt his arm at the time of the fall or not. Review of Systems Review of Systems: All systems reviewed & are unremarkable except as noted in HPI and below Musculoskeletal: Musculoske
--- NOTE | 2019-12-14 13:44 | PM.DS ---
DS: Admitting Diagnosis Admitting Diagnosis Admitting Diagnosis: Weakness DS: Discharge Diagnosis Discharge Diagnosis (1) Weakness: Code(s): R53.1 - Weakness Status: Acute Assessment and Plan: Patient presented with ataxia, confusion and urinary incontinence. Patient states his weakness is secondary to not eating and then states he fell to the ground because of that. No signs of acute infection at this time as the cause. CT Head showed concerns of the patient possibly having central predominant atrophy or normal pressure hydrocephalus. MRI was ordered showing normal MRI other than chronic small vessel disease. I called our Neurologist Dr. Solis who recommended ordering: CPK which was normal, Adolase which is pending, CRP was slightly elevated but decreased since arrival, Carotid Dopplers showed less than 50% stenosis bilaterally and Echocardiogram which showed diastolic dysfunction grade II, otherwise no abnormality. Neurologist, Dr. Solis evaluated the patient and feels that his confusion may be due to underlying dementia from moderate chronic small vessel disease changes. He feels at this time an lumbar puncture is no warranted to look further at normopressure hydrocephalus since MRI was normal. I discussed the options of seizure activity and he recommended having his facility monitor the patient for any seizures and if he has one to have him come back to the ER or follow up in his office. He would like for him to follow up in a few weeks for further evaluation at that time. At this point, the patient is alert and orientated x4. I called his sister who was at his bedside yesterday and stated the patient was at his baseline and she did not think he was more confused than normal. At this time, the patient is going to be discharged to a SNF, [facility] for further physical and occupational therapy before returning to his intermediate center. (2) Fall: Code(s): W19.XXXA - Unspecified fall, initial encounter Status: Acute Assessment and Plan: Patient stated that he felt weak today because he had eaten. He has had a poor appetite due to his dislike of the food selection at this jail. Will start supplements and dietary consult. Recommended SNF placement. He is going to [facility]. (3) Abrasion of forehead: Code(s): S00.81XA - Abrasion of other part of head, initial encounter Status: Acute Assessment and Plan: Due to fall. No complications. (4) Ataxia: Code(s): R27.0 - Ataxia, unspecified Status: Acute Assessment and Plan: Discharge to [facility] (5) Urinary incontinence: Qualifiers: Urinary Incontinence type: unspecified incontinence Qualified Code(s): R32 - Unspecified urinary incontinence Code(s): R32 - Unspecified urinary incontinence Status: Acute Assessment and Plan: I believe that this occurred just because of the fall. He has no other problems with urinary incontinence at this time. (6) Thrombocytopenia: Code(s): D69.6 - Thrombocytopenia, unspecified Status: Acute Assessment and Plan: The patient denies history of thrombocytopenia in the past. He reports not seeing a doctor for years. Normal coag panel, fibrinogen, otherwise his liver enzyme are normal. Will have them check CBC in 1 week for further evaluation. Patient needs a primary care provider to follow up with after discharge. (7) Hypokalemia: Code(s): E87.6 - Hypokalemia Status: Acute Assessment and Plan: Slight hypokalemia this morning at 3.2. This was replenished. Will check a BMP in 1 week and have him follow up pr
[2019-12-14] MEDS: CYANOCOBALAMIN INJ 1,000 MCG/ML VIAL 1000 MCG IM (14:03)
--- NOTE | 2019-12-14 15:56 | WPDNEURORHBP ---
Subjective Date/time seen: 12/14/19 15:56 Interval history: patient's brain MRI does not show any evidence of stroke he does have a brain atrophy he denies any headache nausea vomiting chest pain shortness of breath fever chills sore throat he does have a fracture of his left arm and has being walking at the facility he is at without any device does not give any history of gait disorder and aura and/or urinary incontinence Review of Systems Review of Systems: All systems reviewed & are unremarkable except as noted in HPI and below Functional Status Ambulation Ability Ambulation Assistive Devices: Walker, Galdino Transfers Ability Ability to Transfer In/Out of Chair: Minimum Assistance X 1 Exam Const: General: comfortable and no acute distress HENMT: General nose exam: Normal nares present Mouth: Yes moist mucous membranes Eyes: General: appearance normal, both eyes and all related structures Neck: Neck: supple and no JVD Resp: Effort & Inspection: normal respiratory effort Auscultation: clear to auscultation bilaterally Cardio: Rate: regular rate Rhythm: regular rhythm GI: GI Palp: Yes Soft to palpation Auscultation: normal bowel sounds Skin: General skin exam: normal color and no rashes or lesions noted Neuro: Other: he is awake alert follows commands and except mild short-term memory deficit which I would expect to the Mookie a 79 year does not have any other evidence of NPH he denies any urinary incontinence and he denies any gait dysfunction Extrem: General: normal to inspection Psych: Other: mild short-term memory deficit Objective Data Vital Signs Vital Signs: Vital Signs - 24 hr 12/13/19 16:00 12/13/19 22:00 12/14/19 00:00 Temperature 36.7 C Pulse Rate 72 62 56 L Respiratory Rate 18 Blood Pressure 151/79 H Pulse Oximetry 98 12/14/19 04:00 12/14/19 06:00 12/14/19 14:00 Temperature 36.4 C 36.4 C Pulse Rate 65 61 66 Respiratory Rate 18 18 Blood Pressure 145/73 H 140/72 Pulse Oximetry 99 100 Intake/Output Intake/Output: Intake & Output 12/11/19 12/12/19 12/13/19 12/14/19 23:59 23:59 23:59 23:59 Intake Total 1000 1350 880 Output Total 200 Balance 1000 1350 680 Meds/Results Medications: Active Medications Generic Name Dose Route Start Last Admin Trade Name Collins PRN Reason Stop Dose Admin Cyanocobalamin 1,000 mcg 12/14/19 11:20 12/14/19 14:03 Vitamin B-12 Inj IM 12/17/19 11:21 1,000 mcg DAILY DILAN Administration Radiology Results: ITS Impressions Head CT 12/12/19 09:50 IMPRESSION: 1. No fracture or acute intracranial hemorrhage. 2. Symmetric enlargement of the ventricles which is disproportionate to the mild increased prominence of the sulci which could be related to central predominant atrophy or normal pressure hydrocephalus (NPH: clinical triad ataxia/gait disturbance, dementia, urinary incontinence). 3. Mild scattered periventricular predominant white matter hypoattenuation consistent with chronic small vessel ischemic disease. Chest X-Ray 12/12/19 10:03 IMPRESSION: 1. Minimal bibasilar atelectasis. Brain MRI 12/13/19 09:31 IMPRESSION: 1. Stable moderate nonspecific cerebral white matter disease, which likely represents chronic small vessel ischemic disease. Carotid Doppler Study 12/13/19 13:53 IMPRESSION: 1. <50% stenosis in the right internal carotid artery. 2. <50% stenosis in the left internal carotid artery. Elbow X-Ray 12/13/19 15:17 IMPRESSION: Abnormal contour along the anteromedial aspect of the left humeral head with location and appearance suggesting possible reverse Hill-Sachs fracture trough related to an age-indeterminate posterior dislocation injury. Correlate with clinical history. Humerus X-Ray 12/13/19 15:17
[2019-12-16 01:47] LABS: Aldolase 6.3 U/L (<=8.1)
== END 2019-12-14 19:34 | DRG 884 ==
LOC: ANHED 11:45 → ANH3MEDSUR 15:07
PROVIDERS: Nurse Practitioner; Physician Assistant; Admitting Provider Internal Medicine; Emergency Provider Emergency Medicine; Visit Provider Family Medicine
DX: F03.90 Unspecified dementia, unspecified severity, without behavioral disturbance, psychotic disturbance, mood disturbance, and anxiety (principal); R53.1 Weakness; R27.0 Ataxia, unspecified; R32 Unspecified urinary incontinence; D69.6 Thrombocytopenia, unspecified; E87.6 Hypokalemia; E53.8 Deficiency of other specified B group vitamins; S00.81XA Abrasion of other part of head, initial encounter; S49.92XA Unspecified injury of left shoulder and upper arm, initial encounter; W19.XXXA Unspecified fall, initial encounter; Z66 Do not resuscitate
CPT/HCPCS: 36415; 70450; 70553; 71045; 73030; 73060; 73080; 73110; 80048; 80053; 81001; 82085; 82550; 82607; 82746; 82948; 83605; 83735; 84443; 85025; 85055; 85384; 85610; 85730; 86140; 93005; 93306; 93880; 96360; 97110; 97161; 97165; 97530; 99285; A9270; A9577; C8929; G0378; J3420; J7030; J7120

== ENCOUNTER 2020-03-24 11:22 | Inpatient (IN) | payer MEDICARE, SELFPAY ==
--- NOTE | ~2020-03-24 | XR_ITS ---
EXAMINATION: XR chest 1V INDICATION: Confusion and altered mental status TECHNIQUE: AP view of the chest is obtained. COMPARISON: 12/12/2019 FINDINGS: The lungs are free of acute opacities. There is no pleural effusion or pneumothorax. The ca rdiomediastinal silhouette is normal. IMPRESSION: 1. No acute cardiopulmonary abnormality. Reviewed, dictated and finalized at location A.
--- NOTE | ~2020-03-24 | US_ITS ---
EXAMINATION: US carotid duplex BI EXAM DATE: 03/27/2020 16:53 INDICATION: seizure TECHNIQUE: Grayscale, color and pulsed Doppler images of the cervical carotid arteries were obtained . The degree of vessel stenosis is placed in one of the following categories: normal, <50% stenosis, 50-69% stenosis, >=70% stenosis but less than near-occlusion, near-occlusion, or occlusion. Note that percent stenosis relative to normal distal artery lumen diameter is indirectly measured from velocit y measurements as described by Francois, et al. Radiology 2003; [id number]. Comparison is made to prior examination from 12/13/2019. FINDINGS: RIGHT SIDE: Right common carotid artery peak systolic velocity (PSV in cm/s): 91 Right bulb/internal carotid artery peak systolic velocity (PSV in cm/s): 115 Right internal carotid artery end diastolic velocity (EDV in cm/s): 23 Right ICA/CCA peak systolic ratio: 1.3 Right external carotid artery peak systolic velocity (PSV in cm/s): 80 Right vertebral artery antegrade flow: yes There is mild carotid bulb plaque. Velocity and Doppler waveforms in the common and internal carotid arteries is normal. LEFT SIDE: Left common carotid artery peak systolic velocity (PSV in cm/s): 111 Left bulb/internal carotid artery peak systolic velocity (PSV in cm/s): 115 Left internal carotid artery end diastolic velocity (EDV in cm/s): 21 Left ICA/CCA peak systolic ratio: 1.0 Left external carotid artery peak systolic velocity (PSV in cm/s): 70 Left vertebral artery antegrade flow: yes There is mild carotid bulb plaque. Velocity and Doppler waveforms in the common and internal carotid arteries is normal. IMPRESSION: 1. Less than 50 percent stenosis in the right internal carotid artery. 2. Less than 50 percent stenosis in the left internal carotid artery. Reviewed, dictated and finalized at location A.
--- NOTE | ~2020-03-24 | XR_ITS ---
EXAMINATION: XR shoulder LT min 2V DATE: 03/24/2020 16:55 INDICATION: Left shoulder pain TECHNIQUE: AP internally and externally rotated, AP oblique externally rotated and transscapular Y vi ews of the left shoulder were obtained. COMPARISON: None FINDINGS: Normal alignment. No acute fracture. Again seen is suggestion of a reversal Sachs fracture trough al ventura the anteromedial left humeral head. The left glenohumeral joint space is not well profiled on the provided projections however there does appear to be cephalad predominant nonuniform joint space krista rowing and small marginal osteophytes about the glenoid consistent with mild osteoarthritis. Unchange d mild osteoarthritis at the left acromioclavicular joint. Visualized portion of the left lung are cl ear. IMPRESSION: 1. Mild left acromioclavicular and glenohumeral osteoarthritis. 2. Stable appearance of the abnormal contour to the anteromedial left humeral head suggesting a chron ic reversal Sachs fracture trough related to a prior posterior dislocation injury. Correlate with cli nical history. Reviewed, dictated and finalized at location B. IMPRESSION: 1. Mild left acromioclavicular and glenohumeral osteoarthritis. 2. Stable appearance of the abnormal contour to the anteromedial left humeral h ead suggesting a chronic reversal Sachs fracture trough related to a prior post erior dislocation injury. Correlate with clinical history.
--- NOTE | ~2020-03-24 | CT_ITS ---
EXAMINATION: CT brain wo con DATE: 03/24/2020 11:53 INDICATION: Altered mental status. TECHNIQUE: Computed tomography (CT) of the head was performed without intravenous contrast. The mA wa s adjusted according to patient size. Iterative reconstruction technique was employed. The dose-lengt h product was 681.00 mGy-cm. COMPARISON: Head CT 12/12/2019, brain MRI 12/13/2019 FINDINGS: There are scattered areas of nonspecific increased T2-weighted signal intensity in the cere bral white matter. There is no intracranial hemorrhage, acute infarction, or abnormal intracranial ma ss lesion. The ventricles are normal in size. There is mild mucosal thickening in the paranasal sinus es. The mastoid air cells are normal. The orbits are normal. IMPRESSION: 1. Stable mild nonspecific cerebral white matter disease, which likely represents chronic small vesse l ischemic disease. Reviewed, dictated and finalized at location A. IMPRESSION: 1. Stable mild nonspecific cerebral white matter disease, which likely represen ts chronic small vessel ischemic disease.
--- NOTE | ~2020-03-24 | CT_ITS ---
EXAMINATION: CT brain wo con DATE: 03/27/2020 01:12 INDICATION: Seizures TECHNIQUE: Computed tomography (CT) of the head was performed without intravenous contrast. Sagittal and coronal reconstructions were performed. The mA was adjusted according to patient size. Iterative reconstruction technique was employed. The dose-length product was 681.00 mGy-cm. COMPARISON: head CT dated 03/24/2020 FINDINGS: Stable appearance of mild scattered white matter hypoattenuation consistent with chronic small vessel ischemic disease. No acute intracranial hemorrhage, acute infarction or abnormal extra axial fluid collection. Ventricles are normal and symmetric. No mass/mass effect. Intracranial calcified cerebral atherosclerosis is noted. The orbits, paranasal sinuses and mastoid air cells are normal. IMPRESSION: 1. Table appearance of mild scattered nonspecific white matter hypoattenuation consistent with chroni c small vessel ischemic disease. Reviewed, dictated and finalized at location A. IMPRESSION: 1. Table appearance of mild scattered nonspecific white matter hypoattenuation consistent with chronic small vessel ischemic disease.
[2020-03-24 11:29] VITALS: BP 155/85; PULSE 78; RESP 20; TEMP 37; O2SAT 99
--- NOTE | 2020-03-24 11:36 | ECG_ITS ---
Measurements Intervals [place] Rate: 75 P: 48 MT: 166 QRS: -19 QRSD: 99 T: 9 QT: 371 QTc: 415 Interpretive Statements SINUS RHYTHM ATRIAL PREMATURE COMPLEX POSSIBLE LEFT ATRIAL ENLARGEMENT INCOMPLETE RIGHT BUNDLE BRANCH BLOCK DELAYED PRECORDIAL R/S TRANSITION BORDERLINE T WAVE ABNORMALITY- INFERIOR LEADS BASELINE ARTIFACT- I, II, III, AVR, AVL, AVF, V1 BORDERLINE ECG Electronically Signed On 03-24-2020 12:07:17 CDT by Chu Stock D.O.
[2020-03-24 11:48] LABS: Basophils Percent Auto 0.6 % (0.2-1.2); Eosinophils Absolute Auto 0.1 K/mm3 (0-0.3); Eosinophils Percent Auto 1.5 % (0-4.4); Hemoglobin 12.2 g/dL (14.0-18.0); Immature Granulocyte Absolute 0.01 K/mm3 (0.00-0.031); Immature Granulocyte Percent A 0.2 % (0-0.5); Lymphocytes Percent Auto 8.7 % (18.3-44.2); Mean Corpuscular HGB Conc 33.9 g/dl (32-36); Mean Corpuscular Hemoglobin 31.2 pg (26-34); Mean Corpuscular Volume 92.1 fl (80-100); Monocytes Absolute Auto 0.4 K/mm3 (0.1-0.6); Monocytes Percent Auto 8.9 % (2.6-8.5); Neutrophils Absolute Auto 3.7 K/mm3 (1.3-6.7); Neutrophils Percent Auto 80.1 % (45.5-73.1); Platelet Count Result 170 k/mm3 (150-375); Red Blood Count 3.91 M/mm3 (4.6-6.20); Red Cell Distribution Width 12.5 % (11.5-14.5); White Blood Count 4.6 K/mm3 (4.5-10.0)
[2020-03-24 12:01] LABS: Alanine Aminotransferase 28 U/L (4-50); Albumin Level 3.7 g/dL (3.5-5.1); Alkaline Phosphatase 57 U/L (38-126); Anion Gap 6 mmol/L (8-16); Aspartate Amino Transferase 37 U/L (17-59); Bilirubin,Total 0.7 mg/dL (0.2-1.3); Blood Urea Nitrogen 10 mg/dL (9-20); Calcium 9.1 mg/dL (8.4-10.2); Carbon Dioxide 32 mmol/L (22-30); Chloride 99 mmol/L (98-107); Estimated CRCL calculation 77 ml/min; Estimated Glomerular Filt Rate > 60; Glucose 148 mg/dL (75-110); INR 1.1; Potassium 3.5 mmol/L (3.4-5.0); Prothrombin Time 13.8 Seconds (11.1-14.7); Sodium 137 mmol/L (137-145)
[2020-03-24 12:02] LABS: Partial Thromboplastin Time 32.5 SECONDS (22.3-36.8)
--- NOTE | 2020-03-24 12:09 | ED.GENADULT ---
HPI - General Adult General Chief complaint: Unspecified Stated complaint: CONFUSION Time Seen by Provider: 03/24/20 11:32 Source: RN notes reviewed History of Present Illness HPI narrative: Patient presents to emergency department via EMS for altered mental status. Patient is unable to give full history. Per the EMS patient has a history of dementia. The patient had wandered into a neighbor's house and at that time police and EMS had been called and patient was transferred for further evaluation. The patient had a similar episode yesterday where he had wandered into a neighbor's house and the police have been called and the patient been returned to his house. Patient is currently awake and alert x2 he does not recall wandering into the neighbor's house he denies any recent illness and denies any complaints at this time Related Data Allergies Allergy/AdvReac Type Severity Reaction Status Date / Time GARLIC BREAD FROM Allergy Mild LOWER Uncoded 03/24/20 12:10 WONDERBREAD FOREARM RASH Review of Systems Review of Systems: Narrative: Gen.: Denies fevers or chills Eyes: Denies eye pain or visual change ENT: Denies congestion Respiratory: Denies shortness of breath or cough CV: Denies chest pain or palpitations GI: Denies abdominal pain nausea, emesis or diarrhea Musculoskeletal: Denies back pain or muscle pain Neuro: See HPI Skin: Denies rash Except as documented, all other systems reviewed and negative [facility] Past Medical History Medical History Injury of left shoulder Shoulder dislocation Surgical History Surgical History No history of previous surgery Family History Family History Mother due to natural causes The patient tells me that his mother at the age of 82 of natural causes. Father due to natural causes The patient tells me that his father at the age of 88 due to natural causes. Sibling Family history unknown The patient tells me that his sister has health issues but he does not want to disclose her information. Social History Social History Social History: The patient tells me that he lives at [place] half-way by himself. He has never been or had any children. He is retired from [employer]. He is a lifelong nonsmoker and nondrinker. The patient tells me that his sister Camryn is his durable power ip attorney for healthcare in the event that he cannot make decisions for himself. However at this time he desires to be a DNR. He has not used any marijuana or illicit drugs. Smoking status: Never smoker Second hand tobacco smoke exposure: No Gender identity (if verbalized by the patient): Male Spiritual care concerns: No Exam Narrative: Exam Narrative: APPEARANCE: No acute distress, nontoxic, resting in bed EYES: EOMI HEENT: Normocephalic, atraumatic, OMM RESPIRATORY: No respiratory distress Clear to auscultation bilaterally with no rhonchi wheezing or rales. CARDIOVASCULAR: Regular rate and rhythm without murmurs rubs or gallops. ABDOMINAL: Soft, nontender, nondistended, no rebound or guarding MUSCULOSKELETAl: Moves all extremities. No clubbing, cyanosis or edema. NEURO: Awake and alert x 2. Following commands, speech normal, no focal deficits SKIN:: Warm, dry. No rashes lesions or abrasions PSYCHIATRIC: Normal affect/mood, Course Course Emergency Course: Reviewed old records. The patient has been worked up for confusion before in past felt to have dementia Pacemaker was involved and they did further investigation of the patient. The patient currently resides in assisted living and visits his sister once a month ago was in the house. The patient had been placed in a cab and went to his sister's house th
--- NOTE | 2020-03-24 13:08 | PC.NURSE ---
Per Sergio Warren with Adult Protective Services pt was living in [place] - independent long term [facility] - found wandering on several occasions. Paxton Szymanski then called his sister sincere and said he cant live alone any more, and she came and picked him up and took him back to her house in [place]. Reported to Adult Protective Service on 03/21/2020 for wandering and experiencing confusion. Pt had been ambulatory to [facility] and asked to use their restroom. Where pt was returned back to [facility]. Sergio attempted to visit him at the facility yesterday 03/23/2020. Paxton Szymanski told Sergio that the sister picked the pt up on 03/22/2020. Sergio Warren - Adult Protective Services @ [phone] ext [phone].
--- NOTE | 2020-03-24 13:40 | PCCCNOTE ---
Spoke with patient's sister, Stephanie Jeong and discussed the possibility of placement, the process for applying for Medicaid and the criteria of 3 night stay for Medicare to cover admission to a SNF. Stephanie Jeong voiced understanding and the ability for the patient to self-pay nearly $6,000 per month. Spoke with Ignacia at [facility] and faxed over clinicals. Ignacia requested that the patient be tested for Covid (ordered) and that the negative results be faxed to her at [phone]
--- NOTE | 2020-03-24 13:50 | PM.IMHP ---
H&P: HPI History of Present Illness Date/Time: 03/24/20 13:50 Chief complaint: Confusion. Narrative: Sheldon Marshall Jr. is a 80-year-old male with dementia who presented to the emergency department earlier today via EMS for evaluation of confusion. Given his dementia he is not the greatest historian as such a majority of this history is obtained via a review of his electronic medical records. He has no children and has 1 sister who lives in the area, however I have not been able to get a hold of her as of yet. According to EMS documentation and reports from staff in the emergency department, the patient lives in assisted living but spends a week or so with his sister every month. He is currently staying with his sister but apparently wandered out of her house today and was found sitting in the kitchen in someone else's home. The patient told the lady at the residence that he had come into her home as he needed help and did not know how to get home. Apparently a similar episode occurred yesterday as well. He was then brought to the emergency department where apparently staff were able to get a hold of his sister who requested that he most likely needed to be placed in a memory care facility. At the time my evaluation he is pleasantly confused and cooperative. His only complaint is of some mild left shoulder discomfort, which he goes on to state has been chronic. On exam he has an old bruise on his right shoulder in a an area of erythema on his back and with further questioning he denies having had a fall or injury. Currently he has no complaints and specifically denies fever, chills, sweats, cold and flu symptoms, chest pain, shortness of breath, nausea, vomiting, diarrhea, and dysuria. Review of Systems Review of Systems: Narrative: Twelve systems were reviewed with pertinent positives and negatives as per HPI. He is not a reliable historian however in the accuracy of such is questionable. Except as documented all other systems were reviewed and are negative. [facility] Past Medical History Medical History (Updated 03/24/20 @ 19:21 by Holly Logan PA-C) Chronic anemia Dementia Vitamin B12 deficiency Surgical History Surgical History No history of previous surgery Family History Family History Mother due to natural causes The patient tells me that his mother at the age of 82 of natural causes. Father due to natural causes The patient tells me that his father at the age of 88 due to natural causes. Sibling Family history unknown The patient tells me that his sister has health issues but he does not want to disclose her information. Social History Social History (Updated 03/24/20 @ 19:06 by Holly Logan PA-C) Social History: He currently lives in assisted living at [facility]. He never and has no children. He retired from the [employer]. He is a lifelong nonsmoker and he does not drink alcohol or use illicit substances. His sister Camryn is his surrogate decision maker. Smoking status: Never smoker Second hand tobacco smoke exposure: No Alcohol intake: never Substance use: never Gender identity (if verbalized by the patient): Male Spiritual care concerns: No Meds Home Medications and Allergies Home Medications Medication Instructions Recorded Confirmed Type cyanocobalamin (vitamin B-12) 1,000 mcg PO DAILY #30 cap 12/14/19 Rx Allergies Allergy/AdvReac Type Severity Reaction Status Date / Time GARLIC BREAD FROM Allergy Mild LOWER Uncoded 03/24/20 12:10 WONDERBREAD FOREARM RASH Vital Signs Vital Signs - 24 hr 03/24/20 11:29 03/24/20 15:27 03/24/20 16:36 Temperature 98.6 F Pulse Rate 78 83 75 Respiratory Rate 20 14 14 Blood Pressure 155/85 H 144/86 H 143/86 H Pulse Oximetry 99 98 100
[2020-03-24 14:07] LABS: Add Urine Microscopic? NO; Appearance Urine Clear (Clear); Bilirubin Urine Negative (Negative); Blood Urine Negative (Negative); Color Urine Yellow (Yellow); Glucose Urine UA Negative (Negative); Ketones Urine Negative (Negative); Leukocyte Esterase Ur Negative LEU/UL (Negative); Nitrate Urine Negative (Negative); Protein Urine Negative (Negative); Urobilinogen Urine Negative mg/dL (<2.0)
[2020-03-24] MEDS: ACETAMINOPHEN 500 MG TABLET 1000 MG PO (14:37)
[2020-03-24 15:27] VITALS: BP 144/86; PULSE 83; RESP 14; O2SAT 98
--- NOTE | 2020-03-24 16:02 | PCCCNOTE ---
Sergio Warren (Adult Protective Services @ [phone] ext [phone]) is following patient. Updated Sergio with the events leading up to the patient being hospitalized. Sergio asks that she be updated tomorrow and when the patient is discharged
[2020-03-24 16:36] VITALS: BP 143/86; PULSE 75; RESP 14; O2SAT 100
[2020-03-24 17:01] VITALS: BP 138/80; PULSE 70; RESP 20; O2SAT 98
[2020-03-24 17:31] VITALS: BMI 19.1
--- NOTE | 2020-03-24 17:33 | ADMGEN ---
This patient, Sheldon Marshall Jr., was admitted to [facility] Surg Room 333-01. Patient/family oriented to hospital policies and general routines including ID bracelet, bed and alarms, visiting hours, pain management, procedures, bathroom and other care routines, personal items, smoking policy, room service/diet, and visiting hours. Information on how to activate the Rapid Response Team has been discussed. Patient/Family are encouraged to report perceived risks to care and to ask questions if they do not understand what they are told or what they should do.
--- NOTE | 2020-03-24 17:48 | PC.NURSE ---
Unable to complete home medications. Patient denies taking any home medications. This RN attempted to contact patient's sister, Stephanie Marshall without success. Message left asking her to return call.
--- NOTE | 2020-03-24 18:15 | PC.NURSE ---
This RN spoke with Stephanie Marshall. Per Stephanie, patient does not take any home medications.
--- NOTE | 2020-03-24 19:32 | PCCCNOTE ---
Ivelisse Izaguirre - clinicals sent. potential for placement
[2020-03-24 22:00] VITALS: BP 147/60; PULSE 61; RESP 16; TEMP 36.3; O2SAT 99
[2020-03-24 22:31] LABS: SARS-CoV-2 RNA PCR Negative
[2020-03-25 06:17] VITALS: BP 132/65; PULSE 53; RESP 16; TEMP 36.4; O2SAT 99
[2020-03-25 06:58] LABS: Basophils Absolute Auto 0.1 K/mm3 (0.0-0.1); Basophils Percent Auto 1.1 % (0.2-1.2); Eosinophils Absolute Auto 0.2 K/mm3 (0-0.3); Eosinophils Percent Auto 3.3 % (0-4.4); Hematocrit 38.2 % (42.0-52.0); Hemoglobin 12.5 g/dL (14.0-18.0); Immature Granulocyte Absolute 0.01 K/mm3 (0.00-0.031); Immature Granulocyte Percent A 0.2 % (0-0.5); Lymphocytes Absolute Auto 0.76 K/mm3 (0.9-3.2); Lymphocytes Percent Auto 16.7 % (18.3-44.2); Mean Corpuscular HGB Conc 32.7 g/dl (32-36); Mean Corpuscular Hemoglobin 31.3 pg (26-34); Mean Corpuscular Volume 95.7 fl (80-100); Mean Platelet Volume 11.5 fl (7.4-10.4); Monocytes Absolute Auto 0.5 K/mm3 (0.1-0.6); Monocytes Percent Auto 11.2 % (2.6-8.5); Neutrophils Absolute Auto 3.1 K/mm3 (1.3-6.7); Neutrophils Percent Auto 67.5 % (45.5-73.1); Platelet Count Result 172 k/mm3 (150-375); Red Blood Count 3.99 M/mm3 (4.6-6.20); Red Cell Distribution Width 12.8 % (11.5-14.5); White Blood Count 4.5 K/mm3 (4.5-10.0)
[2020-03-25 07:14] LABS: Anion Gap 5 mmol/L (8-16); Blood Urea Nitrogen 8 mg/dL (9-20); Calcium 8.6 mg/dL (8.4-10.2); Carbon Dioxide 33 mmol/L (22-30); Chloride 101 mmol/L (98-107); Estimated CRCL calculation 84 ml/min; Estimated Glomerular Filt Rate > 60; Glucose 91 mg/dL (75-110); Potassium 3.7 mmol/L (3.4-5.0); Sodium 139 mmol/L (137-145)
[2020-03-25 14:00] VITALS: BP 130/71; PULSE 78; RESP 18; TEMP 36.7; O2SAT 95
--- NOTE | 2020-03-25 14:57 | PM.IMPN ---
Progress Note: A&P Assessment and Plan (1) Dementia: Code(s): F03.90 - Unspecified dementia without behavioral disturbance Status: Acute Assessment and Plan: Patient was found to be wandering from his sister's home and was found in someone else's kitchen. He has been admitted for safety purposes as it is not safe for him to return to his assisted living facility. Care coordination is following to find suitable placement. There does not appear to be any underlying exacerbating factors such as infection or electrolyte abnormality. (2) Chronic anemia: Code(s): D64.9 - Anemia, unspecified Status: Acute Assessment and Plan: hemoglobin and hematocrit are stable and appear consistent with his baseline. No signs of active bleeding and vital signs are stable. Will continue to monitor H&H. (3) Elevated blood pressure reading: Code(s): R03.0 - Elevated blood-pressure reading, without diagnosis of hypertension Status: Acute Assessment and Plan: Blood pressure had been as high as 170/90. He denies having any history of hypertension and is not on any antihypertensive medications. Blood pressures have improved and are stable today in the 130s. At this time will hold off on initiating any antihypertensives and will monitor blood pressure. Subjective Date/time seen: 03/25/20 14:57 Interval history: Date of service: 03/25/20 Sheldon Marshall is a 80 year old male with a history Of dementia, anemia, and vitamin B12 deficiency who is seen in follow-up while he is awaiting placement in possible memory care. He was noted to be wandering outside and was found in a stranger's kitchen. He has no concerns at this time. He is feeling well. His only complaint is that he is cold. His appetite is good. He denies any acute pain, shortness of breath, cough, chest pain, nausea, vomiting, fever, chills, abdominal pain, dizziness, lightheadedness, or weakness. Review of Systems Review of Systems: Narrative: 12 systems reviewed with pertinent positives and negatives as per HPI. Exam Narrative: Exam Narrative: Mr. Marshall is a well-nourished 80-year-old male who is lying supine in bed. He appears comfortable and is in NARD. HR 78, BP 130/71, RR 18, T 98.0?, 95% on room air Neuro: awake, alert and oriented x2 (able to state name, , and knows he is at , cannot state year, president, or details leading to hospitalization), speech clear, no focal neuro deficits noted HEENMT: normocephalic, atraumatic, EOMI, sclerae anicteric, moist oral mucosa, tongue midline, nares patent, wearing glasses Neck: supple, no lymphadenopathy Respiratory: clear to auscultation bilaterally, nonlabored breathing Cardio: regular rate, regular rhythm with S1-S2 Abdomen: nondistended, normoactive bowel sounds, soft, nontender to palpation, no rigidity or guarding Extremities: no edema, chronic appearing discoloration of RLE, no cyanosis, clubbing, or tenderness to palpation, DP pulses 2+ bilaterally Skin: no rashes or lesions, warm and dry Psych: appropriate mood and affect, judgment and insight intact Objective Data Vital Signs Vital Signs: Vital Signs - 24 hr 03/24/20 15:27 03/24/20 16:36 03/24/20 17:01 Temperature Pulse Rate 83 75 70 Respiratory Rate 14 14 20 Blood Pressure 144/86 H 143/86 H 138/80 Pulse Oximetry 98 100 98 03/24/20 22:00 03/25/20 06:17 Temperature 97.3 F L 97.5 F L Pulse Rate 61 53 L Respiratory Rate 16 16 Blood Pressure 147/60 H 132/65 Pulse Oximetry 99 99 Intake/Output Intake/Output: Intake & Output 03/22/20 03/23/20 03/24/20 03/25/20 23:59 23:59 23:59 23:59 Intake Total 240 350 Output Total 500 Balance 240 -150 Meds/Results Radiology Results: ITS Impressions Head CT 03/24/20 11:54 IMPRESSION: 1. Stable mild nonspecific cerebral white matter disease, which likely represents chronic small vessel ischemic disease. Chest X-Ray
[2020-03-25 21:51] VITALS: BP 125/68; PULSE 57; RESP 18; TEMP 36.6; O2SAT 98
[2020-03-26 06:00] VITALS: BP 122/68; PULSE 52; RESP 16; TEMP 36.6; O2SAT 98
[2020-03-26 06:43] LABS: Hematocrit 34.7 % (42.0-52.0)
[2020-03-26] MEDS: CYANOCOBALAMIN 1,000 MCG TABLET 1000 MCG PO (10:23)
--- NOTE | 2020-03-26 11:10 | PM.IMPN ---
Progress Note: A&P Assessment and Plan (1) Dementia: Code(s): F03.90 - Unspecified dementia without behavioral disturbance Status: Acute Assessment and Plan: Patient was found to be wandering from his sister's home and was found in someone else's kitchen. He has been admitted for safety purposes as it is not safe for him to return to his assisted living facility. Care coordination is following to find suitable placement. There does not appear to be any underlying exacerbating factors such as infection or electrolyte abnormality. Currently awaiting placement. (2) Chronic anemia: Code(s): D64.9 - Anemia, unspecified Status: Acute Assessment and Plan: Hemoglobin and hematocrit are stable and appear consistent with his baseline. No signs of active bleeding and vital signs are stable. Will continue to monitor H&H.Hgb 12.0 and HCt 34.7 today. (3) Elevated blood pressure reading: Code(s): R03.0 - Elevated blood-pressure reading, without diagnosis of hypertension Status: Acute Assessment and Plan: Blood pressure had been as high as 170/90. He denies having any history of hypertension and is not on any antihypertensive medications. Blood pressures have improved. BP reviewed today and is stable at 122/86. At this time will hold off on initiating any antihypertensives and will continue to monitor blood pressure. (4) Shoulder dislocation: Qualifiers: Encounter type: subsequent encounter Laterality: left Qualified Code(s): S43.005D - Unspecified dislocation of left shoulder joint, subsequent encounter Code(s): S43.006A - Unspecified dislocation of unspecified shoulder joint, initial encounter Status: Acute Assessment and Plan: Upon presentation, he complained of mild left shoulder discomfort that now seems to have resolved. He was seen by orthopedic surgery in December 2019 after an unwitnessed fall and was found to have dislocation relocation injury and conservative management was recommended. 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 At this time will continue with supportive care to include ice, heat, and analgesics as needed. Subjective Date/time seen: 03/26/20 11:10 Interval history: Date of service: 03/26/20 Sheldon Marshall is a 80 year old male with a history Of dementia, anemia, and vitamin B12 deficiency who is seen in follow-up while he is awaiting placement in possible memory care. He was noted to be wandering outside and was found in a stranger's kitchen. he is feeling well at this time and has no concerns. his only complaint at this time that he does not like the SCD boots squeezing his legs. He has been eating well. He has remained pleasantly confused with no episodes of acute agitation. Review of Systems Review of Systems: Narrative: Twelve systems reviewed with pertinent positives and negatives as per HPI. Exam Narrative: Exam Narrative: Mr. Marshall is a well-nourished 80-year-old male who is lying supine in bed. He appears comfortable and is in NARD. HR 52, BP 122/86, R 16, T 97.8?, 98% on room air Neuro: awake, alert and oriented x2 (able to state name, , and knows he is at , and the president. Cannot state month, year, age, or details leading to hospitalization), able to follow all commands, speech clear, no focal neuro deficits noted, bilateral pharmacist intern strength 5/5 HEENMT: normocephalic, atraumatic, EOMI, sclerae anicteric, moist oral mucosa, tongue midline, nares patent, wearing glasses Neck: supple, no lymphadenopathy Respiratory: clear to auscultation bilaterally, nonlabored breathing Cardio: regular rate, regular rhythm with S1-S2 Abdomen: nondistended, normoactive bowel sounds, soft, nontender to palpation, no rigidity or guarding Extremities: limited AROM
[2020-03-26 14:00] VITALS: BP 139/60; PULSE 71; RESP 18; TEMP 37; O2SAT 93
[2020-03-26 22:00] VITALS: BP 131/62; PULSE 51; RESP 18; TEMP 36.9; O2SAT 99
[2020-03-27 00:40] VITALS: BP 180/74; PULSE 90; RESP 22; O2SAT 96
[2020-03-27] MEDS: LORazepam INJ (*CRX) 2 MG/ML VIAL 1 MG IV PUSH (00:45)
[2020-03-27 00:59] LABS: Basophils Percent Auto 0.4 % (0.2-1.2); Eosinophils Absolute Auto 0.1 K/mm3 (0-0.3); Eosinophils Percent Auto 0.8 % (0-4.4); Hematocrit 43.9 % (42.0-52.0); Hemoglobin 14.3 g/dL (14.0-18.0); Immature Granulocyte Absolute 0.04 K/mm3 (0.00-0.031); Immature Granulocyte Percent A 0.4 % (0-0.5); Lymphocytes Absolute Auto 1.49 K/mm3 (0.9-3.2); Lymphocytes Percent Auto 15.3 % (18.3-44.2); Mean Corpuscular HGB Conc 32.6 g/dl (32-36); Mean Corpuscular Hemoglobin 31.9 pg (26-34); Mean Platelet Volume 11.1 fl (7.4-10.4); Monocytes Absolute Auto 0.6 K/mm3 (0.1-0.6); Monocytes Percent Auto 6.1 % (2.6-8.5); Neutrophils Absolute Auto 7.5 K/mm3 (1.3-6.7); Platelet Count Result 208 k/mm3 (150-375); Red Blood Count 4.48 M/mm3 (4.6-6.20); Red Cell Distribution Width 12.5 % (11.5-14.5); White Blood Count 9.8 K/mm3 (4.5-10.0)
[2020-03-27 01:15] LABS: Anion Gap 18 mmol/L (8-16); Blood Urea Nitrogen 12 mg/dL (9-20); Calcium 9.2 mg/dL (8.4-10.2); Carbon Dioxide 19 mmol/L (22-30); Chloride 101 mmol/L (98-107); Estimated CRCL calculation 71 ml/min; Estimated Glomerular Filt Rate > 60; Glucose 127 mg/dL (75-110); Potassium 3.5 mmol/L (3.4-5.0); Sodium 138 mmol/L (137-145)
[2020-03-27 01:17] LABS: Glucose Point of Care 107 (65-105)
[2020-03-27 01:44] LABS: Lactic Acid Reflex 11.9 mmol/L (0.7-2.1)
--- NOTE | 2020-03-27 02:03 | PM.EVENT ---
Event Note Event Note Event Note: Rapid response was called on patient after he had a tonic clonic seizure. Patient seen and examined. Patient was post ictal, had lip bite. Was given Ativan 1 mg iv Panel of labs was obtained which returned with elavted Lactic acid, rest unremarkable. CT head unremarkable Neurochecks q 2 hours IV fluids Repeat Lactic acid in am. Patient resting comfortably. Discussed with staff.
[2020-03-27] MEDS: SODIUM CHLORIDE 0.9% IV 1,000 ML 75 ML IV CONT ×2 (02:46→15:59)
[2020-03-27 03:57] LABS: Reflex Lactic Acid Yes or No Add Lactic
[2020-03-27 05:38] VITALS: BP 136/59; PULSE 63; RESP 16; TEMP 36.6; O2SAT 99
[2020-03-27 06:22] LABS: Lactic Acid Reflex 0.7 mmol/L (0.7-2.1)
[2020-03-27] MEDS: CYANOCOBALAMIN 1,000 MCG TABLET 1000 MCG PO (09:17)
[2020-03-27] MEDS: ACETAMINOPHEN 325 MG TABLET 650 MG PO (09:19)
--- NOTE | 2020-03-27 09:56 | WPDNEURCNPN ---
Assessment and Plan Assessment and plan (1) Vitamin B12 deficiency: Code(s): E53.8 - Deficiency of other specified B group vitamins Status: Acute (2) Dementia: Code(s): F03.90 - Unspecified dementia without behavioral disturbance Status: Acute (3) Injury of left shoulder: Qualifiers: Encounter type: initial encounter Qualified Code(s): S49.92XA - Unspecified injury of left shoulder and upper arm, initial encounter Code(s): S49.92XA - Unspecified injury of left shoulder and upper arm, initial encounter Status: Acute Additional Plan ongoing dementia with intermittent increase in the confusion raising the possibility of simple increasing confusion or as occasional seizures, CT scan of the head is not diagnostic of any space-occupying lesion or normal pressure hydrocephalus, will obtain the EEG and also Doppler study of the carotid for long-term recommendations Consult date: 03/27/20 Time Seen: 09:15 HPI: Sheldon Marshall Jr. is a 80 year old male admitted to the hospital with ongoing diagnosis of dementia for the complaints of increasing confusion as per the information available patient lives in assisted living but spends a week or so with sister every month. He reportedly wandered out of the house and was found sitting in the kitchen in someone else's home. He told the lady at the residence that he had come in to home as he needed help and did not know how to get home. Patient has had the similar episodes in the past as well when he was brought to the emergency room he did complain of mild left shoulder discomfort which is somewhat chronic in nature. He was noted to have an old bruise on his right shoulder and erythema on his back. Pertinent history is consistent with vitamin B12 deficiency, anemia and dementia. He does not smoke does not drink. Has been getting B12 p.o. 1000 micro daily. Evaluation up until now revealed 11.9 lactic acid, glucose 127 fairly normal electrolytes and CBC without leukocytosis head CT scan with cerebral white matter disease consistent with chronic small vessel ischemia is steady has been done twice, shoulder x-ray with left acromioclavicular and glenohumeral osteoarthritis and left humeral head suggesting a chronic fracture related to previous posterior dislocation injury, patient is receiving only supportive medication including B12 Review of Systems Review of Systems: All systems reviewed & are unremarkable except as noted in HPI and below [facility] Past Medical History Medical History (Updated 03/26/20 @ 11:22 by Sandra Lopez PA-C) Chronic anemia Dementia Vitamin B12 deficiency Surgical History Surgical History No history of previous surgery Family History Family History Mother due to natural causes The patient tells me that his mother at the age of 82 of natural causes. Father due to natural causes The patient tells me that his father at the age of 88 due to natural causes. Sibling Family history unknown The patient tells me that his sister has health issues but he does not want to disclose her information. Social History Social History (Updated 03/24/20 @ 19:06 by Holly Logan PA-C) Social History: He currently lives in assisted living at [facility]. He never and has no children. He retired from the [employer]. He is a lifelong nonsmoker and he does not drink alcohol or use illicit substances. His sister Camryn is his surrogate decision maker. Smoking status: Never smoker Second hand tobacco smoke exposure: No Alcohol intake: never Substance use: never Gender identity (if verbalized by the patient): Male Spiritual care concerns: No Meds Home Medications and Allergies Home Medications Medication Instructions Recorded Confirmed Type
[2020-03-27 11:41] LABS: SARS-CoV-2 RNA PCR Negative
--- NOTE | 2020-03-27 12:22 | PM.IMPN ---
Progress Note: A&P Assessment and Plan (1) Dementia: Code(s): F03.90 - Unspecified dementia without behavioral disturbance Status: Acute Assessment and Plan: Patient was found to be wandering from his sister's home and was found in someone else's kitchen. He has been admitted for safety purposes as it is not safe for him to return to his assisted living facility. Care coordination is following to find suitable placement. There does not appear to be any underlying exacerbating factors such as infection or electrolyte abnormality. Currently awaiting placement. (2) Chronic anemia: Code(s): D64.9 - Anemia, unspecified Status: Acute Assessment and Plan: Hemoglobin and hematocrit are stable and appear consistent with his baseline. No signs of active bleeding and vital signs are stable. Will continue to monitor H&H. Hgb 14.3 [address] HCt 43.9 today. (3) Elevated blood pressure reading: Code(s): R03.0 - Elevated blood-pressure reading, without diagnosis of hypertension Status: Acute Assessment and Plan: Blood pressure had been as high as 170/90. He denies having any history of hypertension and is not on any antihypertensive medications. Blood pressures have improved. BP reviewed today and is stable at 136/59. At this time will hold off on initiating any antihypertensives and will continue to monitor blood pressure. (4) Shoulder dislocation: Qualifiers: Encounter type: subsequent encounter Laterality: left Qualified Code(s): S43.005D - Unspecified dislocation of left shoulder joint, subsequent encounter Code(s): S43.006A - Unspecified dislocation of unspecified shoulder joint, initial encounter Status: Acute Assessment and Plan: Upon presentation, he complained of mild left shoulder discomfort that now seems to have resolved. He was seen by orthopedic surgery in December 2019 after an unwitnessed fall and was found to have dislocation relocation injury and conservative management was recommended. 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 At this time will continue with supportive care to include ice, heat, and analgesics as needed. (5) Seizure: Code(s): R56.9 - Unspecified convulsions Status: Acute Assessment and Plan: Patient noted to have self-limited tonic-clonic seizure lasting 2-3 minutes last night. He bit his lip but did not sustain any other injuries. He received 1 mg IV Ativan. Stat blood work obtained at that time was unremarkable with the exception of lactic acid elevated at 11.9, secondary to seizing. Levels rapidly declined to normal limits upon repeat. Etiology is unclear. He has no documented seizure history but he did have a posterior shoulder dislocation, which he may have sustained from prior seizure. He does not use alcohol. Blood sugar was stable. Head CT was negative for acute process. Neurology has been consulted and recommendations are appreciated. Will order EEG and carotid doppler based on neurology recommendations. Ativan prn. Subjective Date/time seen: 03/27/20 12:22 Interval history: Date of service: 03/27/20 Sheldon Marshall is a 80 year old male with a history of dementia, anemia, and vitamin B12 deficiency who is seen in follow-up while he is awaiting placement in possible memory care. last night he was noted to have a self-limited tonic-clonic seizure lasting approximately 3 minutes. he was noted to the slightly more confused than his baseline afterwards, with no additional issues. He bit his lip and reports that it is a little sore. This morning he appears to be at his baseline and is pleasantly confused. he denies any acute pain. No trouble breathing, cough, chest pain, abdominal pain, nausea, or vomiting. He has been eating well. Review of
[2020-03-27 14:00] VITALS: BP 131/69; PULSE 79; RESP 16; TEMP 36.2; O2SAT 99
[2020-03-27 22:00] VITALS: BP 132/61; PULSE 90; RESP 16; TEMP 36.9; O2SAT 99
[2020-03-28] MEDS: SODIUM CHLORIDE 0.9% IV 1,000 ML 75 ML IV CONT (05:19)
[2020-03-28 06:00] VITALS: BP 125/72; PULSE 72; RESP 16; TEMP 36.7; O2SAT 98
[2020-03-28 06:02] LABS: Anion Gap 3 mmol/L (8-16); Blood Urea Nitrogen 10 mg/dL (9-20); Calcium 8.2 mg/dL (8.4-10.2); Carbon Dioxide 29 mmol/L (22-30); Chloride 103 mmol/L (98-107); Estimated CRCL calculation 84 ml/min; Estimated Glomerular Filt Rate > 60; Glucose 98 mg/dL (75-110); Potassium 3.9 mmol/L (3.4-5.0); Sodium 135 mmol/L (137-145)
[2020-03-28] MEDS: CYANOCOBALAMIN 1,000 MCG TABLET 1000 MCG PO (08:09)
--- NOTE | 2020-03-28 08:50 | WPDNEUROPN ---
Progress Note: A&P Additional Plan as ordered Review of Systems Review of Systems: All systems reviewed & are unremarkable except as noted in HPI and below Exam Narrative: Exam Narrative: examination remains unchanged Objective Data Vital Signs Vital Signs: Vital Signs - 24 hr 03/27/20 14:00 03/27/20 22:00 03/28/20 06:00 Temperature 36.2 C L 36.9 C 36.7 C Pulse Rate 79 90 72 Respiratory Rate 16 16 16 Blood Pressure 131/69 132/61 125/72 Pulse Oximetry 99 99 98 Intake/Output Intake/Output: Intake & Output 03/25/20 03/26/20 03/27/20 03/28/20 23:59 23:59 23:59 23:59 Intake Total 1060 3250 2520 1800 Output Total 1325 2525 1375 500 Balance -054 437 0576 1300 Meds/Results Medications: Active Medications Generic Name Dose Route Start Last Admin Trade Name Freq PRN Reason Stop Dose Admin Acetaminophen 650 mg 03/25/20 15:18 03/27/20 09:19 Acetaminophen 325 Mg Tablet PO 650 mg Q4H PRN Administration Mild pain 1-3 Cyanocobalamin 1,000 mcg 03/26/20 09:00 03/28/20 08:09 Cyanocobalamin 1,000 Mcg Tablet PO 1,000 mcg DAILY DILAN Administration Docusate Sodium 100 mg 03/25/20 15:18 Docusate Sodium 100 Mg Capsule PO Q12H PRN Constipation Sodium Chloride 1,000 mls @ 75 mls/hr 03/27/20 02:05 03/28/20 08:11 Normal Saline Iv IV CONT 0 mls/hr .[id number] DILAN Infusion Lorazepam 1 mg 03/27/20 13:11 Lorazepam Inj (*Crx) 2 Mg/Ml Vial IV PUSH ONCE PRN seizure Radiology Results: ITS Impressions Chest X-Ray 03/24/20 12:01 IMPRESSION: 1. No acute cardiopulmonary abnormality. Shoulder X-Ray 03/24/20 16:55 IMPRESSION: 1. Mild left acromioclavicular and glenohumeral osteoarthritis. 2. Stable appearance of the abnormal contour to the anteromedial left humeral head suggesting a chronic reversal Sachs fracture trough related to a prior posterior dislocation injury. Correlate with clinical history. Head CT 03/27/20 08:04 IMPRESSION: 1. Table appearance of mild scattered nonspecific white matter hypoattenuation consistent with chronic small vessel ischemic disease. Carotid Doppler Study 03/27/20 17:21 IMPRESSION: 1. Less than 50 percent stenosis in the right internal carotid artery. 2. Less than 50 percent stenosis in the left internal carotid artery. Labs Labs: Laboratory Results - last 24 hr 03/27/20 03/28/20 05:29 05:41 Sodium 135 L Potassium 3.9 Chloride 103 Carbon Dioxide 29 Anion Gap 3 L BUN 10 Creatinine 0.50 L Estim Creat Clear Calc 84 Estimated GFR > 60 Glucose 98 Calcium 8.2 L SARS-CoV-2 RNA (RT-PCR) Negative Quality VTE Prophylaxis VTE prophylaxis: mechanical ordered
--- NOTE | 2020-03-28 10:38 | P.NEURO_ITS ---
Neurology EEG Report General Information Date of Study: 03/27/20 TEST eeg DIAGNOSIS seizures CONDITION OF RECORDING drowsy and sleep EEG NUMBER [id number] CLINICAL HISTORY History of possible seizures EEG DESCRIPTION basic resting occipital frequency consists of large amount of fairly well- organized low to medium voltage 8 to 10 hertz per 2nd alpha admixed with low- voltage 15 to 18 hertz per 2nd beta. During drowsiness low-voltage beta activi ty seen diffusely. Bilateral symmetrical sleep activity seen during sleep. Hyperventilation not done. Photic stimulation not done. IMPRESSION No significant abnormalities noted
--- NOTE | 2020-03-28 10:38 | WPDNEUROLOGY ---
Neurology EEG Report General Information Date of Study: 03/27/20 TEST eeg DIAGNOSIS seizures CONDITION OF RECORDING drowsy and sleep EEG NUMBER [id number] CLINICAL HISTORY History of possible seizures EEG DESCRIPTION basic resting occipital frequency consists of large amount of fairly well-organized low to medium voltage 8 to 10 hertz per 2nd alpha admixed with low-voltage 15 to 18 hertz per 2nd beta. During drowsiness low-voltage beta activity seen diffusely. Bilateral symmetrical sleep activity seen during sleep. Hyperventilation not done. Photic stimulation not done. IMPRESSION No significant abnormalities noted
[2020-03-28 10:59] VITALS: PULSE 69; RESP 16; O2SAT 98
--- NOTE | 2020-03-28 11:41 | PM.DS ---
DS: Admitting Diagnosis Admitting Diagnosis Admitting Diagnosis: Confusion. DS: Discharge Diagnosis Discharge Diagnosis (1) Dementia: Code(s): F03.90 - Unspecified dementia without behavioral disturbance Status: Acute Assessment and Plan: Discharge Summary (Date of service 03/28/20): Mr. Marshall is a 80 y.o. male with PMH significant for dementia and chronic anemia who presented to the emergency department via EMS for the evaluation of confusion. He was living at assisted living and occasionally stayed with his sister. While staying with his sister, he wandered out of the house twice and was found in someone else's kitchen asking for help to get home. Initial workup in the emergency department was unremarkable for exacerbating factors for confusion. CT brain demonstrated no evidence of acute hemorrhage, infarct, or mass. CXR and UA were unremarkable. He had mild normocytic anemia with Hb 12.2 and Hct 36, consistent with baseline. CO2 was mildly elevated at 32 and electrolytes were normal. He was admitted for safety purposes as it is not safe for him to return to his assisted living facility. Care coordination was consulted to assist with placement. He did not appear to have any underlying exacerbating factors such as infection or electrolyte abnormality. The patient had a self-limited tonic-clonic seizure lasting 2-3 minutes on the malt roaster of 03/27/20. He bit his lip but did not sustain any other injuries. He received 1 mg IV Ativan. Stat blood work obtained at that time was unremarkable with the exception of lactic acid elevated at 11.9, secondary to seizing. Levels rapidly declined to normal limits upon repeat. Etiology is unclear. He has no documented seizure history but he did have a posterior shoulder dislocation, which he may have sustained from prior seizure. He does not use alcohol. Blood sugar was stable. Head CT was negative for acute process. Neurology was consulted and recommended EEG and carotid doppler US. EEG demonstrated no significant abnormalities. Carotid doppler US demonstrated <50% carotid stenosis bilaterally. Neurology, Dr. Solis, recommended he begin keppra for seizure prophylaxis and donepezil for his dementia and follow-up with him in 3 weeks outpatient. He was discharged in hemodynamically stable condition on the afternoon of 03/28/20 to [facility]. (2) Seizure: Code(s): R56.9 - Unspecified convulsions Status: Acute (3) Chronic anemia: Code(s): D64.9 - Anemia, unspecified Status: Acute Assessment and Plan: Hemoglobin and hematocrit were stable and consistent with his baseline. He had no signs of active bleeding and vital signs remained stable. (4) Elevated blood pressure reading: Code(s): R03.0 - Elevated blood-pressure reading, without diagnosis of hypertension Status: Acute Assessment and Plan: Blood pressure were elevated initially to 170/90. He denies having any history of hypertension and is not on any antihypertensive medications. Blood pressures normalized without antihypertensives so antihypertensive therapy was not initiated. (5) Shoulder dislocation: Qualifiers: Encounter type: subsequent encounter Laterality: left Qualified Code(s): S43.005D - Unspecified dislocation of left shoulder joint, subsequent encounter Code(s): S43.006A - Unspecified dislocation of unspecified shoulder joint, initial encounter Status: Acute Assessment and Plan: Upon presentation, he complained of mild left shoulder discomfort which subsequently resolved. He was seen by orthopedic surgery in December 2019 after an unwitnessed fall and was found to have dislocation relocation injury and conservative management was recommended. Repeat shoulder x-ray performed on 03/24 showed mild left AC and glenohumeral OA and stable appearance of the left humeral head suggesting chronic reversal sachs fracture from prior dislocat
[2020-03-28 14:00] VITALS: BP 131/70; PULSE 86; RESP 18; TEMP 37; O2SAT 100
[2020-03-31 06:40] LABS: Prolactin 54.6 ng/mL (***)
== END 2020-03-28 17:51 | DRG 101 ==
LOC: ANHED 14:38 → ANH3MEDSUR 15:29
PROVIDERS: Physician Assistant; Admitting Provider Internal Medicine; Emergency Provider Emergency Medicine; Visit Provider Physician Assistant
DX: G40.409 Other generalized epilepsy and epileptic syndromes, not intractable, without status epilepticus (principal); S42.295A Other nondisplaced fracture of upper end of left humerus, initial encounter for closed fracture; F03.90 Unspecified dementia, unspecified severity, without behavioral disturbance, psychotic disturbance, mood disturbance, and anxiety; Z23 Encounter for immunization; Z20.828 Contact with and (suspected) exposure to other viral communicable diseases; E53.8 Deficiency of other specified B group vitamins; D64.9 Anemia, unspecified; M19.012 Primary osteoarthritis, left shoulder; R03.0 Elevated blood-pressure reading, without diagnosis of hypertension; X58.XXXA Exposure to other specified factors, initial encounter
CPT/HCPCS: 36415; 70450; 71045; 73030; 80048; 80053; 81003; 83605; 84146; 84443; 85014; 85018; 85025; 85610; 85730; 87635; 90471; 90653; 93005; 93880; 95816; 96361; 99285; A9270; C9803; G0008; G0378; J2060; J7030; U0003